=== PATIENT | male | born 1945 | race African-American/Black ===

== ENCOUNTER 2019-01-07 14:37 | Observation (INO) ==
[2019-01-07] MEDS ORDERED: ONDANSETRON 4 MG/2 ML VIAL IV STA (17:02)
[2019-01-07] MEDS ORDERED: MECLIZINE 25 MG TABLET PO STA (17:02)
[2019-01-07 17:11] LABS: Basophils % 0.4 % (0.0-0.8); Eosinophils % 0.2 % (0.00-10.9); Hematocrit 42.9 VOL% (42.0-52.0); Hemoglobin 14.1 GM/DL (14.0-18.0); Immature Granulocytes % 0.5 %; Immature Granulocytes Absolute 0.05 #; Lymphocytes # 2.4 10*3/uL (1.4-4.0); Lymphocytes % 25.6 % (21.2-54.2); Mean Corpuscular HGB Conc 32.9 GM/DL (32-36); Mean Corpuscular Volume 92.1 FL (87-102); Mean Platelet Volume 9.7 FL (9.6-12.0); Monocytes % 8.8 % (1.7-12.7); Neutrophils % 64.5 % (38.7-73.9); Platelet Count 280 T/CUMM (130-400); Red Blood Count 4.66 MC/CUMM (3.8-5.5); Red Cell Distribution Width 12.4 % (9.3-17.3); White Blood Count 9.5 T/CUMM (4-12)
[2019-01-07 17:19] LABS: PT Patient Result 10.4 SECS
[2019-01-07 17:23] LABS: Apearance,Urine Slightly Hazy (Clear); Bilirubin,Urine Negative (Negative); Blood, Urine Negative (Negative); Glucose,Urine (UA) >=500 mg/dL (Negative); Hyaline Casts,Urine 1 /LPF (0-3); Ketones,Urine 5 mg/dL (Negative); Mucus,Urine Occasional /LPF (Occasional); Nitrite,Urine Negative (Negative); Protein,Urine Negative; RBC,Urine 3 /HPF (0-4); Squamous Epithelial Cell,Urine Occasional /HPF (0-10); Urine Color Yellow (Yellow); Urine Urobilinogen < 2.0 EU/DL (0.2-1.0); WBC,Urine 1 /HPF (0-6)
[2019-01-07 17:30] LABS: Barbiturates Screen,Urine Negative (Negative); Benzodiazepines Screen,Urine Negative (Negative); Cannabinoid Screen,Urine Negative (Negative); Opiate Screen,Urine Negative (Negative); Phencyclidine Screen,Urine Negative (Negative)
[2019-01-07 17:41] LABS: Alanine Aminotransferase 24 U/L (16-61); Albumin 3.9 G/DL (3.4-5.0); Alkaline Phosphatase 72 U/L (45-117); Aspartate Amino Transferase 19 U/L (0-37); Blood Urea Nitrogen 12 MG/DL (7-18); Calcium 10.2 MG/DL (8.5-10.1); Glucose 254 MG/DL (74-106); Total Protein 8.4 G/DL (6.4-8.3); Troponin I < 0.015 NG/ML (0.00-0.045)
[2019-01-07] MEDS ORDERED: GLUCAGON 1 MG VIAL IM PRN ×2 (18:53)
[2019-01-07] MEDS ORDERED: DEXTROSE 50% 25 GM/50 ML VIAL IV PRN ×2 (18:53)
[2019-01-07] MEDS: PENTOXIFYLLINE 400 MG TABLET PO SCH (21:01)
[2019-01-07] MEDS: INSULIN LISPRO 100 UNIT/ML SUBCUT SCH (21:02)
[2019-01-08 05:31] LABS: Basophils % 0.4 % (0.0-0.8); Eosinophils # 0.1 10*3/uL (0.0-0.87); Eosinophils % 1.2 % (0.00-10.9); Hemoglobin 12.2 GM/DL (14.0-18.0); Immature Granulocytes % 0.3 %; Immature Granulocytes Absolute 0.03 #; Lymphocytes # 2.6 10*3/uL (1.4-4.0); Lymphocytes % 27.8 % (21.2-54.2); Mean Corpuscular Volume 91.8 FL (87-102); Mean Platelet Volume 10.7 FL (9.6-12.0); Monocytes % 10.6 % (1.7-12.7); Neutrophils % 59.7 % (38.7-73.9); Platelet Count 243 T/CUMM (130-400); Red Blood Count 4.03 MC/CUMM (3.8-5.5); Red Cell Distribution Width 12.4 % (9.3-17.3); White Blood Count 9.5 T/CUMM (4-12)
[2019-01-08 06:00] LABS: Calcium 9.2 MG/DL (8.5-10.1); Osmolality,Calculated 280.8 MOS/KG (273-304); Risk Ratio 2.9; VLDL CHOLESTEROL 31.2 MG/DL
[2019-01-08] MEDS: SIMVASTATIN 10 MG TABLET PO SCH (08:19)
[2019-01-08] MEDS: PENTOXIFYLLINE 400 MG TABLET PO SCH ×3 (08:19→21:19)
[2019-01-08] MEDS: LOSARTAN 50 MG TABLET PO SCH (08:19)
[2019-01-08] MEDS: ASPIRIN EC 81 MG TABLET PO SCH (08:19)
[2019-01-08] MEDS: INSULIN GLARGINE 100 UNIT/ML SUBCUT SCH (08:20)
[2019-01-08] MEDS: INSULIN LISPRO 100 UNIT/ML SUBCUT SCH ×4 (08:20→21:21)
[2019-01-08] MEDS: FOLIC ACID 0.4 MG TABLET PO SCH (16:37)
[2019-01-09 04:55] LABS: Basophils # 0.1 10*3/uL (0.0-0.2); Basophils % 0.7 % (0.0-0.8); Eosinophils # 0.3 10*3/uL (0.0-0.87); Hematocrit 38.8 VOL% (42.0-52.0); Hemoglobin 12.5 GM/DL (14.0-18.0); Immature Granulocytes % 0.5 %; Immature Granulocytes Absolute 0.04 #; Lymphocytes # 3.5 10*3/uL (1.4-4.0); Lymphocytes % 40.3 % (21.2-54.2); Mean Corpuscular HGB Conc 32.2 GM/DL (32-36); Mean Corpuscular Volume 93.5 FL (87-102); Mean Platelet Volume 10.5 FL (9.6-12.0); Monocytes % 10.2 % (1.7-12.7); Neutrophils % 45.3 % (38.7-73.9); Platelet Count 247 T/CUMM (130-400); Red Blood Count 4.15 MC/CUMM (3.8-5.5); Red Cell Distribution Width 12.4 % (9.3-17.3); White Blood Count 8.8 T/CUMM (4-12)
[2019-01-09 05:18] LABS: Calcium 9.4 MG/DL (8.5-10.1); Osmolality,Calculated 282.7 MOS/KG (273-304)
[2019-01-09] MEDS: LOSARTAN 50 MG TABLET PO SCH (08:39)
[2019-01-09] MEDS: ASPIRIN EC 81 MG TABLET PO SCH (08:39)
[2019-01-09] MEDS: INSULIN GLARGINE 100 UNIT/ML SUBCUT SCH (08:39)
[2019-01-09] MEDS: PENTOXIFYLLINE 400 MG TABLET PO SCH ×3 (08:39→20:58)
[2019-01-09] MEDS: INSULIN LISPRO 100 UNIT/ML SUBCUT SCH ×4 (08:40→21:26)
[2019-01-09] MEDS: SIMVASTATIN 10 MG TABLET PO SCH (08:40)
[2019-01-09] MEDS: CLOPIDOGREL 75 MG TABLET PO SCH (17:21)
[2019-01-09] MEDS: FOLIC ACID 0.4 MG TABLET PO SCH (17:22)
[2019-01-10] MEDS: SIMVASTATIN 10 MG TABLET PO SCH (08:46)
[2019-01-10] MEDS: FOLIC ACID 0.4 MG TABLET PO SCH (08:46)
[2019-01-10] MEDS: LOSARTAN 50 MG TABLET PO SCH (08:46)
[2019-01-10] MEDS: CLOPIDOGREL 75 MG TABLET PO SCH (08:46)
[2019-01-10] MEDS: ASPIRIN EC 81 MG TABLET PO SCH (08:46)
[2019-01-10] MEDS: PENTOXIFYLLINE 400 MG TABLET PO SCH (08:46)
[2019-01-10] MEDS: INSULIN LISPRO 100 UNIT/ML SUBCUT SCH ×2 (08:46→11:54)
[2019-01-10] MEDS: INSULIN GLARGINE 100 UNIT/ML SUBCUT SCH (08:47)
[2019-01-10 12:01] VITALS: BP 158/80
== END 2019-01-10 14:30 | disposition home or self-care (01) ==
LOC: SUATTDRO → N.EDINP 14:37 → N.ED 14:37 → N.2E 19:43
PROVIDERS: ADMIT Internal Medicine; ATTEND Internal Medicine

== ENCOUNTER 2020-04-07 08:21 | Inpatient (IN) ==
[2020-04-07 10:08] LABS: Basophils # 0.1 10*3/uL (0.0-0.2); Basophils % 0.5 % (0.0-0.8); Eosinophils # 0.2 10*3/uL (0.0-0.87); Eosinophils % 1.7 % (0.00-10.9); Hematocrit 33.4 VOL% (42.0-52.0); Hemoglobin 10.9 GM/DL (14.0-18.0); Immature Granulocytes % 0.7 %; Immature Granulocytes Absolute 0.07 #; Lymphocytes # 1.3 10*3/uL (1.4-4.0); Mean Corpuscular HGB Conc 32.6 GM/DL (32-36); Mean Corpuscular Volume 94.4 FL (87-102); Mean Platelet Volume 10.5 FL (9.6-12.0); Neutrophils % 72.1 % (38.7-73.9); Platelet Count 114 T/CUMM (130-400); Red Blood Count 3.54 MC/CUMM (3.8-5.5); White Blood Count 9.9 T/CUMM (4-12)
[2020-04-07 10:25] LABS: Apearance,Urine CLEAR (Clear); Bilirubin,Urine Negative (Negative); Blood, Urine Small mg/dL (Negative); Glucose,Urine (UA) >=500 mg/dL (Negative); Hyaline Casts,Urine 1 /LPF (0-3); Ketones,Urine Negative (Negative); Mucus,Urine Occasional /LPF (Occasional); Nitrite,Urine Negative (Negative); Protein,Urine 30 MG/DL; RBC,Urine 2 /HPF (0-4); Squamous Epithelial Cell,Urine Occasional /HPF (0-10); Urine Color Yellow (Yellow); Urine Specific Gravity 1.014 (1.001-1.035); Urine Urobilinogen < 2.0 EU/DL (0.2-1.0); WBC,Urine 2 /HPF (0-6)
[2020-04-07 10:28] LABS: Albumin 3.6 G/DL (3.4-5.0); Bilirubin,Total 0.5 MG/DL (0.2-1.0); Calcium 9.9 MG/DL (8.5-10.1); Osmolality,Calculated 298.1 MOS/KG (273-304); Total Protein 7.3 G/DL (6.4-8.3)
[2020-04-07] MEDS ORDERED: ONDANSETRON 4 MG/2 ML VIAL IV PRN (11:24)
[2020-04-07] MEDS ORDERED: GLUCAGON 1 MG VIAL IM PRN (15:13)
[2020-04-07] MEDS ORDERED: DEXTROSE 50% 25 GM/50 ML VIAL IV PRN (15:13)
[2020-04-07] MEDS: ENOXAPARIN 30 MG/0.3 ML SYRINGE SUBCUT SCH (20:20)
[2020-04-07] MEDS: PREGABALIN 50 MG CAPSULE PO SCH (20:20)
[2020-04-07] MEDS: DOCUSATE SODIUM 100 MG CAPSULE PO SCH (20:20)
[2020-04-07] MEDS: INSULIN GLARGINE 100 UNIT/ML SUBCUT SCH (20:21)
[2020-04-08] MEDS ORDERED: LOSARTAN 50 MG TABLET PO SCH (09:00)
[2020-04-08] MEDS: PANTOPRAZOLE 40 MG TABLET PO SCH (09:10)
[2020-04-08] MEDS: FOLIC ACID 0.4 MG TABLET PO SCH (09:10)
[2020-04-08] MEDS: SIMVASTATIN 10 MG TABLET PO SCH (09:10)
[2020-04-08] MEDS: PREGABALIN 50 MG CAPSULE PO SCH (09:10)
[2020-04-08] MEDS: DOCUSATE SODIUM 100 MG CAPSULE PO SCH ×2 (09:10→21:51)
[2020-04-08] MEDS: ASPIRIN EC 81 MG TABLET PO SCH (09:10)
[2020-04-08] MEDS: INSULIN REGULAR 100 UNIT/ML SUBCUT SCH ×2 (16:51→21:52)
[2020-04-08 19:37] LABS: Creatinine Clearance Urine 29.28 ML/MIN (70-135)
[2020-04-08] MEDS: PREGABALIN 75 MG CAPSULE PO SCH (21:51)
[2020-04-08] MEDS: INSULIN GLARGINE 100 UNIT/ML SUBCUT SCH (21:53)
[2020-04-08] MEDS: ENOXAPARIN 30 MG/0.3 ML SYRINGE SUBCUT SCH (21:53)
[2020-04-09] MEDS: SODIUM CHLORIDE 0.9% 1,000 ML IV SCH ×3 (01:49→21:51)
[2020-04-09 06:13] LABS: Calcium 9.4 MG/DL (8.5-10.1); Osmolality,Calculated 285.4 MOS/KG (273-304)
[2020-04-09 06:23] LABS: Uric Acid 5.8 MG/DL (3.5-7.2)
[2020-04-09] MEDS: SIMVASTATIN 10 MG TABLET PO SCH (09:34)
[2020-04-09] MEDS: traMADol 50 MG TABLET PO SCH ×4 (09:34→21:47)
[2020-04-09] MEDS: ASPIRIN EC 81 MG TABLET PO SCH (09:34)
[2020-04-09] MEDS: GLIMEPIRIDE 2 MG TABLET PO SCH (09:34)
[2020-04-09] MEDS: amLODIPine 5 MG TABLET PO SCH (09:34)
[2020-04-09] MEDS: FOLIC ACID 0.4 MG TABLET PO SCH (09:34)
[2020-04-09] MEDS: DOCUSATE SODIUM 100 MG CAPSULE PO SCH ×2 (09:34→21:48)
[2020-04-09] MEDS: PANTOPRAZOLE 40 MG TABLET PO SCH (09:34)
[2020-04-09] MEDS: INSULIN REGULAR 100 UNIT/ML SUBCUT SCH ×4 (10:00→21:49)
[2020-04-09] MEDS: LIDOCAINE 5% PATCH TRANSDERM SCH (10:13)
[2020-04-09] MEDS: PREGABALIN 75 MG CAPSULE PO SCH ×3 (10:24→21:47)
[2020-04-09] MEDS: cefTRIAXone 500 MG in SYRINGE 1 EACH IV SCH (16:56)
[2020-04-09] MEDS: ENOXAPARIN 30 MG/0.3 ML SYRINGE SUBCUT SCH (21:48)
[2020-04-09] MEDS: INSULIN GLARGINE 100 UNIT/ML SUBCUT SCH (21:50)
[2020-04-10 05:11] LABS: Basophils # 0.1 10*3/uL (0.0-0.2); Basophils % 0.6 % (0.0-0.8); Eosinophils # 0.2 10*3/uL (0.0-0.87); Eosinophils % 2.5 % (0.00-10.9); Hematocrit 33.8 VOL% (42.0-52.0); Hemoglobin 10.8 GM/DL (14.0-18.0); Immature Granulocytes % 0.8 %; Immature Granulocytes Absolute 0.07 #; Lymphocytes # 2.4 10*3/uL (1.4-4.0); Mean Corpuscular Volume 96.6 FL (87-102); Mean Platelet Volume 10.6 FL (9.6-12.0); Monocytes % 13.5 % (1.7-12.7); Neutrophils % 55.6 % (38.7-73.9); Platelet Count 118 T/CUMM (130-400); White Blood Count 8.9 T/CUMM (4-12)
[2020-04-10 05:28] LABS: Albumin 3.3 G/DL (3.4-5.0); Bilirubin,Total 0.4 MG/DL (0.2-1.0); Calcium 9.5 MG/DL (8.5-10.1); Hypochromasia 1+; Osmolality,Calculated 283.1 MOS/KG (273-304); Ovalocytes Slight; Total Protein 7.2 G/DL (6.4-8.3)
[2020-04-10] MEDS: SODIUM CHLORIDE 0.9% 1,000 ML IV SCH ×2 (09:12→17:51)
[2020-04-10] MEDS: INSULIN REGULAR 100 UNIT/ML SUBCUT SCH ×4 (09:15→23:04)
[2020-04-10] MEDS: ASPIRIN EC 81 MG TABLET PO SCH (09:16)
[2020-04-10] MEDS: FOLIC ACID 0.4 MG TABLET PO SCH (09:16)
[2020-04-10] MEDS: SIMVASTATIN 10 MG TABLET PO SCH (09:16)
[2020-04-10] MEDS: DOCUSATE SODIUM 100 MG CAPSULE PO SCH ×2 (09:16→21:34)
[2020-04-10] MEDS: PANTOPRAZOLE 40 MG TABLET PO SCH (09:16)
[2020-04-10] MEDS: PREGABALIN 75 MG CAPSULE PO SCH ×3 (09:16→21:34)
[2020-04-10] MEDS: cefTRIAXone 500 MG in SYRINGE 1 EACH IV SCH (09:16)
[2020-04-10] MEDS: amLODIPine 5 MG TABLET PO SCH (09:16)
[2020-04-10] MEDS: traMADol 50 MG TABLET PO SCH ×4 (09:16→21:34)
[2020-04-10] MEDS: GLIMEPIRIDE 2 MG TABLET PO SCH (09:16)
[2020-04-10] MEDS: LIDOCAINE 5% PATCH TRANSDERM SCH (09:17)
[2020-04-10] MEDS: ENOXAPARIN 30 MG/0.3 ML SYRINGE SUBCUT SCH (21:34)
[2020-04-10] MEDS: INSULIN GLARGINE 100 UNIT/ML SUBCUT SCH (23:04)
[2020-04-11] MEDS: SODIUM CHLORIDE 0.9% 1,000 ML IV SCH ×3 (04:21→23:45)
[2020-04-11 05:05] LABS: Basophils # 0.1 10*3/uL (0.0-0.2); Basophils % 0.7 % (0.0-0.8); Eosinophils # 0.3 10*3/uL (0.0-0.87); Hematocrit 34.2 VOL% (42.0-52.0); Immature Granulocytes % 0.9 %; Immature Granulocytes Absolute 0.08 #; Lymphocytes # 1.8 10*3/uL (1.4-4.0); Lymphocytes % 19.8 % (21.2-54.2); Mean Corpuscular HGB Conc 32.2 GM/DL (32-36); Mean Corpuscular Volume 94.5 FL (87-102); Mean Platelet Volume 10.8 FL (9.6-12.0); Monocytes % 11.3 % (1.7-12.7); Neutrophils % 64.3 % (38.7-73.9); Platelet Count 111 T/CUMM (130-400); Red Blood Count 3.62 MC/CUMM (3.8-5.5); Red Cell Distribution Width 12.9 % (9.3-17.3); White Blood Count 9.2 T/CUMM (4-12)
[2020-04-11 05:26] LABS: Hypochromasia 1+; Ovalocytes Slight
[2020-04-11 05:34] LABS: Albumin 3.4 G/DL (3.4-5.0); Bilirubin,Total 0.5 MG/DL (0.2-1.0); Calcium 9.5 MG/DL (8.5-10.1); Osmolality,Calculated 278.4 MOS/KG (273-304); Total Protein 7.3 G/DL (6.4-8.3)
[2020-04-11] MEDS ORDERED: SODIUM POLYSTYRENE SULFATE 15 GM/60 ML BOTTLE PO ONE (07:00)
[2020-04-11] MEDS: INSULIN REGULAR 100 UNIT/ML SUBCUT SCH ×4 (09:22→20:54)
[2020-04-11] MEDS: GLIMEPIRIDE 2 MG TABLET PO SCH (09:22)
[2020-04-11] MEDS: amLODIPine 5 MG TABLET PO SCH (09:23)
[2020-04-11] MEDS: FOLIC ACID 0.4 MG TABLET PO SCH (09:23)
[2020-04-11] MEDS: DOCUSATE SODIUM 100 MG CAPSULE PO SCH ×2 (09:23→20:53)
[2020-04-11] MEDS: PREGABALIN 75 MG CAPSULE PO SCH ×3 (09:23→20:53)
[2020-04-11] MEDS: PANTOPRAZOLE 40 MG TABLET PO SCH (09:23)
[2020-04-11] MEDS: ASPIRIN EC 81 MG TABLET PO SCH (09:23)
[2020-04-11] MEDS: LIDOCAINE 5% PATCH TRANSDERM SCH (09:23)
[2020-04-11] MEDS: SIMVASTATIN 10 MG TABLET PO SCH (09:24)
[2020-04-11] MEDS: traMADol 50 MG TABLET PO SCH ×4 (09:24→20:53)
[2020-04-11] MEDS: cefTRIAXone 500 MG in SYRINGE 1 EACH IV SCH (10:27)
[2020-04-11] MEDS ORDERED: SODIUM POLYSTYRENE SULFATE 15 GM/60 ML BOTTLE PO STA (16:01)
[2020-04-11] MEDS ORDERED: SODIUM POLYSTYRENE SULFATE 15 GM/60 ML BOTTLE PO PRN (19:00)
[2020-04-11] MEDS: INSULIN GLARGINE 100 UNIT/ML SUBCUT SCH (20:54)
[2020-04-11] MEDS: ENOXAPARIN 30 MG/0.3 ML SYRINGE SUBCUT SCH (20:54)
[2020-04-12 06:10] LABS: Calcium 9.2 MG/DL (8.5-10.1); Osmolality,Calculated 274.8 MOS/KG (273-304)
[2020-04-12] MEDS: PANTOPRAZOLE 40 MG TABLET PO SCH (10:01)
[2020-04-12] MEDS: traMADol 50 MG TABLET PO SCH ×4 (10:02→20:55)
[2020-04-12] MEDS: amLODIPine 5 MG TABLET PO SCH (10:03)
[2020-04-12] MEDS: SIMVASTATIN 10 MG TABLET PO SCH (10:03)
[2020-04-12] MEDS: ASPIRIN EC 81 MG TABLET PO SCH (10:03)
[2020-04-12] MEDS: PREGABALIN 75 MG CAPSULE PO SCH ×3 (10:03→20:54)
[2020-04-12] MEDS: DOCUSATE SODIUM 100 MG CAPSULE PO SCH ×2 (10:03→20:54)
[2020-04-12] MEDS: INSULIN REGULAR 100 UNIT/ML SUBCUT SCH ×4 (10:04→20:46)
[2020-04-12] MEDS: GLIMEPIRIDE 2 MG TABLET PO SCH (10:04)
[2020-04-12] MEDS: FOLIC ACID 0.4 MG TABLET PO SCH (10:05)
[2020-04-12] MEDS: LIDOCAINE 5% PATCH TRANSDERM SCH (10:06)
[2020-04-12] MEDS: cefTRIAXone 500 MG in SYRINGE 1 EACH IV SCH (10:17)
[2020-04-12] MEDS: INSULIN GLARGINE 100 UNIT/ML SUBCUT SCH (20:54)
[2020-04-12] MEDS: ENOXAPARIN 30 MG/0.3 ML SYRINGE SUBCUT SCH (20:55)
[2020-04-13 06:10] LABS: Basophils # 0.1 10*3/uL (0.0-0.2); Basophils % 0.7 % (0.0-0.8); Eosinophils # 0.3 10*3/uL (0.0-0.87); Eosinophils % 3.5 % (0.00-10.9); Hematocrit 31.2 VOL% (42.0-52.0); Immature Granulocytes % 1.1 %; Lymphocytes % 21.5 % (21.2-54.2); Mean Corpuscular HGB Conc 32.1 GM/DL (32-36); Mean Platelet Volume 10.4 FL (9.6-12.0); Monocytes % 13.3 % (1.7-12.7); Neutrophils % 59.9 % (38.7-73.9); Platelet Count 136 T/CUMM (130-400); Red Blood Count 3.25 MC/CUMM (3.8-5.5); Red Cell Distribution Width 13.1 % (9.3-17.3); White Blood Count 9.2 T/CUMM (4-12)
[2020-04-13 06:28] LABS: Albumin 3.2 G/DL (3.4-5.0); Calcium 9.7 MG/DL (8.5-10.1); Total Protein 7.1 G/DL (6.4-8.3)
[2020-04-13] MEDS: LIDOCAINE 5% PATCH TRANSDERM SCH (09:38)
[2020-04-13] MEDS: cefTRIAXone 500 MG in SYRINGE 1 EACH IV SCH (09:38)
[2020-04-13] MEDS: amLODIPine 5 MG TABLET PO SCH (09:40)
[2020-04-13] MEDS: DOCUSATE SODIUM 100 MG CAPSULE PO SCH ×2 (09:40→20:24)
[2020-04-13] MEDS: INSULIN REGULAR 100 UNIT/ML SUBCUT SCH ×4 (09:40→20:34)
[2020-04-13] MEDS: GLIMEPIRIDE 2 MG TABLET PO SCH (09:40)
[2020-04-13] MEDS: PREGABALIN 75 MG CAPSULE PO SCH ×3 (09:40→20:24)
[2020-04-13] MEDS: FOLIC ACID 0.4 MG TABLET PO SCH (09:40)
[2020-04-13] MEDS: traMADol 50 MG TABLET PO SCH ×2 (09:41→13:20)
[2020-04-13] MEDS: SIMVASTATIN 10 MG TABLET PO SCH (09:41)
[2020-04-13] MEDS: PANTOPRAZOLE 40 MG TABLET PO SCH (09:41)
[2020-04-13] MEDS ORDERED: FUROSEMIDE 40 MG TABLET PO ONE (13:07)
[2020-04-13] MEDS ORDERED: traMADol 50 MG TABLET PO PRN (13:17)
[2020-04-13] MEDS: INSULIN GLARGINE 100 UNIT/ML SUBCUT SCH (20:28)
[2020-04-14] MEDS: INSULIN REGULAR 100 UNIT/ML SUBCUT SCH ×3 (08:48→21:49)
[2020-04-14] MEDS ORDERED: methylPREDNISolone ACETATE 80 MG/1 ML VIAL ONE (11:39)
[2020-04-14] MEDS ORDERED: ROPIVACAINE 0.5% 30 ML VIAL ONE (11:39)
[2020-04-14] MEDS: cefTRIAXone 500 MG in SYRINGE 1 EACH IV SCH (11:46)
[2020-04-14] MEDS ORDERED: LIDOCAINE 2% 5 ML VIAL ONE (12:48)
[2020-04-14] MEDS ORDERED: ONDANSETRON 4 MG/2 ML VIAL ONE (12:48)
[2020-04-14] MEDS ORDERED: DEXAMETHASONE 4 MG/1 ML VIAL ONE (12:48)
[2020-04-14] MEDS ORDERED: propofoL 200 MG/20 ML VIAL IV ONE (12:48)
[2020-04-14] MEDS ORDERED: FUROSEMIDE 40 MG/4 ML VIAL IV ONE (13:32)
[2020-04-14] MEDS ORDERED: GLUCAGON 1 MG VIAL IM PRN (14:13)
[2020-04-14] MEDS ORDERED: DEXTROSE 50% 25 GM/50 ML VIAL IV PRN (14:13)
[2020-04-14] MEDS: FOLIC ACID 0.4 MG TABLET PO SCH (15:05)
[2020-04-14] MEDS: PANTOPRAZOLE 40 MG TABLET PO SCH (15:06)
[2020-04-14] MEDS: SIMVASTATIN 10 MG TABLET PO SCH (15:06)
[2020-04-14] MEDS: DOCUSATE SODIUM 100 MG CAPSULE PO SCH ×2 (15:07→21:48)
[2020-04-14] MEDS: PREGABALIN 50 MG CAPSULE PO SCH ×2 (15:07→21:48)
[2020-04-14] MEDS: LIDOCAINE 5% PATCH TRANSDERM SCH (15:10)
[2020-04-14] MEDS: hydrALAZINE 25 MG TABLET PO SCH ×2 (15:10→21:48)
[2020-04-14] MEDS: GLIMEPIRIDE 2 MG TABLET PO SCH (16:25)
[2020-04-14] MEDS ORDERED: CLOPIDOGREL 75 MG TABLET PO ONE (17:35)
[2020-04-14] MEDS: PREGABALIN 75 MG CAPSULE PO SCH (20:06)
[2020-04-14] MEDS: INSULIN GLARGINE 100 UNIT/ML SUBCUT SCH (21:49)
[2020-04-15 06:18] LABS: Calcium 9.4 MG/DL (8.5-10.1); Osmolality,Calculated 281.4 MOS/KG (273-304)
[2020-04-15] MEDS: INSULIN REGULAR 100 UNIT/ML SUBCUT SCH ×5 (07:34→20:36)
[2020-04-15] MEDS: amLODIPine 5 MG TABLET PO SCH (07:38)
[2020-04-15] MEDS: GLIMEPIRIDE 2 MG TABLET PO SCH ×2 (08:25→17:04)
[2020-04-15] MEDS: FOLIC ACID 0.4 MG TABLET PO SCH (12:10)
[2020-04-15] MEDS: SIMVASTATIN 10 MG TABLET PO SCH (12:11)
[2020-04-15] MEDS: CLOPIDOGREL 75 MG TABLET PO SCH (12:11)
[2020-04-15] MEDS: PANTOPRAZOLE 40 MG TABLET PO SCH (12:11)
[2020-04-15] MEDS: DOCUSATE SODIUM 100 MG CAPSULE PO SCH ×2 (12:11→20:34)
[2020-04-15] MEDS: hydrALAZINE 25 MG TABLET PO SCH ×2 (12:12→20:34)
[2020-04-15] MEDS: FUROSEMIDE 40 MG/4 ML VIAL IV SCH (12:21)
[2020-04-15] MEDS: PREGABALIN 50 MG CAPSULE PO SCH ×2 (12:22→20:34)
[2020-04-15] MEDS: cefTRIAXone 500 MG in SYRINGE 1 EACH IV SCH (14:02)
[2020-04-15] MEDS: LIDOCAINE 5% PATCH TRANSDERM SCH (20:05)
[2020-04-15] MEDS: INSULIN GLARGINE 100 UNIT/ML SUBCUT SCH (20:35)
[2020-04-16 05:45] LABS: Basophils # 0.1 10*3/uL (0.0-0.2); Basophils % 0.5 % (0.0-0.8); Eosinophils # 0.2 10*3/uL (0.0-0.87); Eosinophils % 1.5 % (0.00-10.9); Hemoglobin 8.8 GM/DL (14.0-18.0); Immature Granulocytes % 0.8 %; Immature Granulocytes Absolute 0.09 #; Lymphocytes # 1.5 10*3/uL (1.4-4.0); Lymphocytes % 14.1 % (21.2-54.2); Mean Corpuscular HGB Conc 32.6 GM/DL (32-36); Mean Corpuscular Volume 94.4 FL (87-102); Mean Platelet Volume 10.5 FL (9.6-12.0); Monocytes % 13.8 % (1.7-12.7); Neutrophils % 69.3 % (38.7-73.9); Platelet Count 156 T/CUMM (130-400); Red Blood Count 2.86 MC/CUMM (3.8-5.5); White Blood Count 10.9 T/CUMM (4-12)
[2020-04-16 06:03] LABS: Albumin 3.2 G/DL (3.4-5.0); Bilirubin,Total 0.4 MG/DL (0.2-1.0); Calcium 9.4 MG/DL (8.5-10.1); Total Protein 7.1 G/DL (6.4-8.3)
[2020-04-16] MEDS: PANTOPRAZOLE 40 MG TABLET PO SCH (09:11)
[2020-04-16] MEDS: GLIMEPIRIDE 2 MG TABLET PO SCH ×2 (09:11→17:13)
[2020-04-16] MEDS: hydrALAZINE 25 MG TABLET PO SCH ×2 (09:12→20:39)
[2020-04-16] MEDS: FOLIC ACID 0.4 MG TABLET PO SCH (09:12)
[2020-04-16] MEDS: DOCUSATE SODIUM 100 MG CAPSULE PO SCH ×2 (09:13→20:39)
[2020-04-16] MEDS: SIMVASTATIN 10 MG TABLET PO SCH (09:13)
[2020-04-16] MEDS: CLOPIDOGREL 75 MG TABLET PO SCH (09:14)
[2020-04-16] MEDS: PREGABALIN 50 MG CAPSULE PO SCH ×2 (09:15→20:39)
[2020-04-16] MEDS: LIDOCAINE 5% PATCH TRANSDERM SCH (09:17)
[2020-04-16] MEDS: INSULIN REGULAR 100 UNIT/ML SUBCUT SCH ×4 (09:19→20:39)
[2020-04-16] MEDS: FUROSEMIDE 40 MG/4 ML VIAL IV SCH (09:22)
[2020-04-16] MEDS: cefTRIAXone 500 MG in SYRINGE 1 EACH IV SCH (09:27)
[2020-04-16] MEDS: INSULIN GLARGINE 100 UNIT/ML SUBCUT SCH (20:40)
[2020-04-17 04:19] LABS: Basophils # 0.1 10*3/uL (0.0-0.2); Basophils % 0.4 % (0.0-0.8); Eosinophils # 0.2 10*3/uL (0.0-0.87); Eosinophils % 1.6 % (0.00-10.9); Hematocrit 27.9 VOL% (42.0-52.0); Immature Granulocytes Absolute 0.11 #; Lymphocytes # 1.6 10*3/uL (1.4-4.0); Lymphocytes % 13.8 % (21.2-54.2); Mean Corpuscular HGB Conc 32.3 GM/DL (32-36); Mean Corpuscular Volume 92.7 FL (87-102); Monocytes % 14.8 % (1.7-12.7); Neutrophils % 68.4 % (38.7-73.9); Platelet Count 153 T/CUMM (130-400); Red Blood Count 3.01 MC/CUMM (3.8-5.5); White Blood Count 11.2 T/CUMM (4-12)
[2020-04-17 04:38] LABS: Albumin 3.3 G/DL (3.4-5.0); Bilirubin,Total 0.7 MG/DL (0.2-1.0); Calcium 9.3 MG/DL (8.5-10.1); Total Protein 7.3 G/DL (6.4-8.3)
[2020-04-17] MEDS: INSULIN REGULAR 100 UNIT/ML SUBCUT SCH ×4 (07:56→21:19)
[2020-04-17] MEDS: LIDOCAINE 5% PATCH TRANSDERM SCH (08:31)
[2020-04-17] MEDS: FUROSEMIDE 40 MG/4 ML VIAL IV SCH (08:34)
[2020-04-17] MEDS: PANTOPRAZOLE 40 MG TABLET PO SCH (08:35)
[2020-04-17] MEDS: SIMVASTATIN 10 MG TABLET PO SCH (08:35)
[2020-04-17] MEDS: CLOPIDOGREL 75 MG TABLET PO SCH (08:35)
[2020-04-17] MEDS: PREGABALIN 50 MG CAPSULE PO SCH ×2 (08:35→21:15)
[2020-04-17] MEDS: hydrALAZINE 25 MG TABLET PO SCH ×2 (08:35→21:15)
[2020-04-17] MEDS: DOCUSATE SODIUM 100 MG CAPSULE PO SCH ×2 (08:35→21:15)
[2020-04-17] MEDS: FERROUS SULFATE 325 MG TABLET PO SCH (08:35)
[2020-04-17] MEDS: GLIMEPIRIDE 2 MG TABLET PO SCH ×2 (08:35→16:25)
[2020-04-17] MEDS: FOLIC ACID 0.4 MG TABLET PO SCH (08:35)
[2020-04-17] MEDS ORDERED: FUROSEMIDE 40 MG/4 ML VIAL IV ONE (14:35)
[2020-04-17] MEDS: INSULIN GLARGINE 100 UNIT/ML SUBCUT SCH (21:16)
[2020-04-18] MEDS: FUROSEMIDE 40 MG/4 ML VIAL IV SCH ×2 (08:11→17:17)
[2020-04-18] MEDS: INSULIN REGULAR 100 UNIT/ML SUBCUT SCH ×4 (08:12→20:30)
[2020-04-18] MEDS: FERROUS SULFATE 325 MG TABLET PO SCH (08:14)
[2020-04-18] MEDS: DOCUSATE SODIUM 100 MG CAPSULE PO SCH ×2 (08:14→20:30)
[2020-04-18] MEDS: FOLIC ACID 0.4 MG TABLET PO SCH (08:14)
[2020-04-18] MEDS: hydrALAZINE 25 MG TABLET PO SCH ×2 (08:14→20:30)
[2020-04-18] MEDS: SIMVASTATIN 10 MG TABLET PO SCH (08:14)
[2020-04-18] MEDS: CLOPIDOGREL 75 MG TABLET PO SCH (08:14)
[2020-04-18] MEDS: PANTOPRAZOLE 40 MG TABLET PO SCH (08:14)
[2020-04-18] MEDS: GLIMEPIRIDE 2 MG TABLET PO SCH ×2 (08:14→17:17)
[2020-04-18] MEDS: PREGABALIN 50 MG CAPSULE PO SCH ×2 (08:14→20:30)
[2020-04-18] MEDS: LIDOCAINE 5% PATCH TRANSDERM SCH (08:17)
[2020-04-18] MEDS: APIXABAN 2.5 MG TABLET PO SCH ×2 (09:24→20:30)
[2020-04-18] MEDS: INSULIN GLARGINE 100 UNIT/ML SUBCUT SCH (20:30)
[2020-04-19 06:08] LABS: Basophils # 0.1 10*3/uL (0.0-0.2); Basophils % 0.4 % (0.0-0.8); Eosinophils # 0.2 10*3/uL (0.0-0.87); Eosinophils % 1.2 % (0.00-10.9); Hematocrit 27.9 VOL% (42.0-52.0); Hemoglobin 9.1 GM/DL (14.0-18.0); Immature Granulocytes % 0.8 %; Immature Granulocytes Absolute 0.12 #; Lymphocytes # 1.4 10*3/uL (1.4-4.0); Lymphocytes % 9.6 % (21.2-54.2); Mean Corpuscular HGB Conc 32.6 GM/DL (32-36); Mean Corpuscular Volume 94.3 FL (87-102); Mean Platelet Volume 9.7 FL (9.6-12.0); Platelet Count 187 T/CUMM (130-400); Red Blood Count 2.96 MC/CUMM (3.8-5.5); Red Cell Distribution Width 12.9 % (9.3-17.3); White Blood Count 14.2 T/CUMM (4-12)
[2020-04-19 06:41] LABS: Calcium 9.4 MG/DL (8.5-10.1); Osmolality,Calculated 277.7 MOS/KG (273-304)
[2020-04-19] MEDS: FUROSEMIDE 40 MG/4 ML VIAL IV SCH ×2 (08:28→16:13)
[2020-04-19] MEDS: DOCUSATE SODIUM 100 MG CAPSULE PO SCH ×2 (08:28→21:50)
[2020-04-19] MEDS: APIXABAN 2.5 MG TABLET PO SCH ×2 (08:28→21:50)
[2020-04-19] MEDS: CLOPIDOGREL 75 MG TABLET PO SCH (08:28)
[2020-04-19] MEDS: FOLIC ACID 0.4 MG TABLET PO SCH (08:28)
[2020-04-19] MEDS: PANTOPRAZOLE 40 MG TABLET PO SCH (08:28)
[2020-04-19] MEDS: FERROUS SULFATE 325 MG TABLET PO SCH (08:28)
[2020-04-19] MEDS: PREGABALIN 50 MG CAPSULE PO SCH ×2 (08:28→21:50)
[2020-04-19] MEDS: hydrALAZINE 25 MG TABLET PO SCH ×2 (08:28→21:50)
[2020-04-19] MEDS: SIMVASTATIN 10 MG TABLET PO SCH (08:28)
[2020-04-19] MEDS: GLIMEPIRIDE 2 MG TABLET PO SCH ×2 (08:28→16:13)
[2020-04-19] MEDS: LIDOCAINE 5% PATCH TRANSDERM SCH (08:29)
[2020-04-19] MEDS: INSULIN REGULAR 100 UNIT/ML SUBCUT SCH ×4 (08:30→21:50)
[2020-04-19] MEDS: INSULIN GLARGINE 100 UNIT/ML SUBCUT SCH (21:51)
[2020-04-20 05:01] LABS: Basophils # 0.1 10*3/uL (0.0-0.2); Basophils % 0.4 % (0.0-0.8); Eosinophils # 0.1 10*3/uL (0.0-0.87); Eosinophils % 0.8 % (0.00-10.9); Hematocrit 27.6 VOL% (42.0-52.0); Immature Granulocytes % 0.7 %; Lymphocytes # 2.1 10*3/uL (1.4-4.0); Lymphocytes % 14.1 % (21.2-54.2); Mean Corpuscular HGB Conc 32.6 GM/DL (32-36); Mean Corpuscular Volume 93.6 FL (87-102); Mean Platelet Volume 9.9 FL (9.6-12.0); Monocytes % 14.8 % (1.7-12.7); Neutrophils % 69.2 % (38.7-73.9); Platelet Count 226 T/CUMM (130-400); Red Blood Count 2.95 MC/CUMM (3.8-5.5); Red Cell Distribution Width 12.8 % (9.3-17.3)
[2020-04-20 05:19] LABS: Calcium 9.4 MG/DL (8.5-10.1); Osmolality,Calculated 275.7 MOS/KG (273-304)
[2020-04-20] MEDS: FUROSEMIDE 40 MG/4 ML VIAL IV SCH ×2 (08:46→17:25)
[2020-04-20] MEDS: INSULIN REGULAR 100 UNIT/ML SUBCUT SCH ×4 (08:46→21:02)
[2020-04-20] MEDS: APIXABAN 2.5 MG TABLET PO SCH ×2 (08:47→21:02)
[2020-04-20] MEDS: GLIMEPIRIDE 2 MG TABLET PO SCH ×2 (08:47→17:29)
[2020-04-20] MEDS: hydrALAZINE 25 MG TABLET PO SCH ×2 (08:47→21:02)
[2020-04-20] MEDS: FOLIC ACID 0.4 MG TABLET PO SCH (08:47)
[2020-04-20] MEDS: DOCUSATE SODIUM 100 MG CAPSULE PO SCH ×2 (08:47→21:02)
[2020-04-20] MEDS: PREGABALIN 50 MG CAPSULE PO SCH ×2 (08:48→21:02)
[2020-04-20] MEDS: SIMVASTATIN 10 MG TABLET PO SCH (08:48)
[2020-04-20] MEDS: FERROUS SULFATE 325 MG TABLET PO SCH (08:48)
[2020-04-20] MEDS: PANTOPRAZOLE 40 MG TABLET PO SCH (08:48)
[2020-04-20] MEDS: CLOPIDOGREL 75 MG TABLET PO SCH (08:48)
[2020-04-20] MEDS: LIDOCAINE 5% PATCH TRANSDERM SCH (08:53)
[2020-04-20] MEDS: INSULIN GLARGINE 100 UNIT/ML SUBCUT SCH (21:02)
[2020-04-21] MEDS: INSULIN REGULAR 100 UNIT/ML SUBCUT SCH ×4 (08:00→21:18)
[2020-04-21] MEDS: GLIMEPIRIDE 2 MG TABLET PO SCH ×2 (08:43→16:05)
[2020-04-21] MEDS: FUROSEMIDE 40 MG/4 ML VIAL IV SCH ×2 (08:43→16:05)
[2020-04-21] MEDS: PREGABALIN 50 MG CAPSULE PO SCH ×2 (08:55→20:58)
[2020-04-21] MEDS: FOLIC ACID 0.4 MG TABLET PO SCH (08:57)
[2020-04-21] MEDS: FERROUS SULFATE 325 MG TABLET PO SCH (08:57)
[2020-04-21] MEDS: CLOPIDOGREL 75 MG TABLET PO SCH (08:57)
[2020-04-21] MEDS: APIXABAN 2.5 MG TABLET PO SCH ×2 (08:57→20:58)
[2020-04-21] MEDS: SIMVASTATIN 10 MG TABLET PO SCH (08:57)
[2020-04-21] MEDS: PANTOPRAZOLE 40 MG TABLET PO SCH (08:57)
[2020-04-21] MEDS: LIDOCAINE 5% PATCH TRANSDERM SCH (08:58)
[2020-04-21] MEDS: DOCUSATE SODIUM 100 MG CAPSULE PO SCH ×2 (08:58→20:57)
[2020-04-21] MEDS: hydrALAZINE 25 MG TABLET PO SCH ×2 (09:15→20:59)
[2020-04-21 13:18] LABS: Calcium 9.3 MG/DL (8.5-10.1); Osmolality,Calculated 279.8 MOS/KG (273-304)
[2020-04-21] MEDS ORDERED: traMADol 50 MG TABLET PO PRN (14:43)
[2020-04-21] MEDS ORDERED: TUBERCULIN SKIN TEST 0.1 ML SYRINGE INTRADERM ONE (15:42)
[2020-04-21] MEDS: cefTRIAXone 500 MG in SYRINGE 1 EACH IV SCH (16:49)
[2020-04-21] MEDS: ACETAMINOPHEN 325 MG TABLET PO PRN (20:05)
[2020-04-21] MEDS: INSULIN GLARGINE 100 UNIT/ML SUBCUT SCH (20:57)
[2020-04-22 05:14] LABS: Basophils # 0.1 10*3/uL (0.0-0.2); Basophils % 0.3 % (0.0-0.8); Eosinophils % 0.3 % (0.00-10.9); Hematocrit 30.4 VOL% (42.0-52.0); Hemoglobin 9.6 GM/DL (14.0-18.0); Immature Granulocytes % 0.8 %; Immature Granulocytes Absolute 0.12 #; Lymphocytes # 1.5 10*3/uL (1.4-4.0); Lymphocytes % 10.4 % (21.2-54.2); Mean Corpuscular HGB Conc 31.6 GM/DL (32-36); Mean Corpuscular Volume 94.7 FL (87-102); Mean Platelet Volume 9.8 FL (9.6-12.0); Monocytes % 17.4 % (1.7-12.7); Neutrophils % 70.8 % (38.7-73.9); Platelet Count 340 T/CUMM (130-400); Red Blood Count 3.21 MC/CUMM (3.8-5.5); Red Cell Distribution Width 12.6 % (9.3-17.3); White Blood Count 14.3 T/CUMM (4-12)
[2020-04-22 05:31] LABS: Calcium 9.9 MG/DL (8.5-10.1); Osmolality,Calculated 275.8 MOS/KG (273-304)
[2020-04-22 05:49] LABS: Hypochromasia 1+; Lymphocytes 8 % (20-55); Microcytosis 1+; Ovalocytes Slight; Platelet Estimate Adequate; Segmented Neutrophils 78 % (50-85); Total Cells Counted 100
[2020-04-22] MEDS: FOLIC ACID 0.4 MG TABLET PO SCH (09:10)
[2020-04-22] MEDS: FERROUS SULFATE 325 MG TABLET PO SCH (09:10)
[2020-04-22] MEDS: APIXABAN 2.5 MG TABLET PO SCH ×2 (09:10→21:04)
[2020-04-22] MEDS: SIMVASTATIN 10 MG TABLET PO SCH (09:10)
[2020-04-22] MEDS: PANTOPRAZOLE 40 MG TABLET PO SCH (09:10)
[2020-04-22] MEDS: GLIMEPIRIDE 2 MG TABLET PO SCH ×4 (09:10→19:44)
[2020-04-22] MEDS: DOCUSATE SODIUM 100 MG CAPSULE PO SCH ×2 (09:10→21:04)
[2020-04-22] MEDS: hydrALAZINE 25 MG TABLET PO SCH ×2 (09:11→21:04)
[2020-04-22] MEDS: PREGABALIN 50 MG CAPSULE PO SCH ×2 (09:11→21:04)
[2020-04-22] MEDS: FUROSEMIDE 40 MG/4 ML VIAL IV SCH ×2 (09:11→15:34)
[2020-04-22] MEDS: CLOPIDOGREL 75 MG TABLET PO SCH (09:11)
[2020-04-22] MEDS: LIDOCAINE 5% PATCH TRANSDERM SCH (09:12)
[2020-04-22] MEDS: INSULIN REGULAR 100 UNIT/ML SUBCUT SCH ×4 (12:59→21:03)
[2020-04-22] MEDS: ACETAMINOPHEN 325 MG TABLET PO PRN (15:27)
[2020-04-22] MEDS: cefTRIAXone 500 MG in SYRINGE 1 EACH IV SCH ×2 (19:30→20:04)
[2020-04-22] MEDS: INSULIN GLARGINE 100 UNIT/ML SUBCUT SCH (21:03)
[2020-04-23] MEDS: ACETAMINOPHEN 325 MG TABLET PO PRN (04:18)
[2020-04-23 05:59] LABS: Basophils # 0.1 10*3/uL (0.0-0.2); Basophils % 0.4 % (0.0-0.8); Eosinophils % 0.3 % (0.00-10.9); Hematocrit 28.7 VOL% (42.0-52.0); Hemoglobin 9.2 GM/DL (14.0-18.0); Immature Granulocytes % 0.7 %; Immature Granulocytes Absolute 0.09 #; Lymphocytes # 1.5 10*3/uL (1.4-4.0); Mean Corpuscular HGB Conc 32.1 GM/DL (32-36); Mean Corpuscular Volume 95.3 FL (87-102); Mean Platelet Volume 9.6 FL (9.6-12.0); Monocytes % 15.6 % (1.7-12.7); Platelet Count 366 T/CUMM (130-400); Red Blood Count 3.01 MC/CUMM (3.8-5.5); Red Cell Distribution Width 12.6 % (9.3-17.3); White Blood Count 12.5 T/CUMM (4-12)
[2020-04-23 06:17] LABS: Calcium 8.1 MG/DL (8.5-10.1); Osmolality,Calculated 273.8 MOS/KG (273-304)
[2020-04-23 06:34] LABS: Anisocytosis 1+; Band Neutrophils 4 % (0-10); Burr Cells Few; Eosinophils 2 % (0-10); Lymphocytes 13 % (20-55); Platelet Estimate Normal; Segmented Neutrophils 65 % (50-85); Total Cells Counted 100
[2020-04-23] MEDS: INSULIN REGULAR 100 UNIT/ML SUBCUT SCH ×2 (08:39→11:11)
[2020-04-23] MEDS: FUROSEMIDE 40 MG/4 ML VIAL IV SCH (08:43)
[2020-04-23] MEDS: hydrALAZINE 25 MG TABLET PO SCH (08:45)
[2020-04-23] MEDS: PREGABALIN 50 MG CAPSULE PO SCH (08:45)
[2020-04-23] MEDS: SIMVASTATIN 10 MG TABLET PO SCH (08:46)
[2020-04-23] MEDS: FERROUS SULFATE 325 MG TABLET PO SCH (08:46)
[2020-04-23] MEDS: FOLIC ACID 0.4 MG TABLET PO SCH (08:46)
[2020-04-23] MEDS: DOCUSATE SODIUM 100 MG CAPSULE PO SCH (08:46)
[2020-04-23] MEDS: PANTOPRAZOLE 40 MG TABLET PO SCH (08:46)
[2020-04-23] MEDS: APIXABAN 2.5 MG TABLET PO SCH (08:46)
[2020-04-23] MEDS: CLOPIDOGREL 75 MG TABLET PO SCH (08:47)
[2020-04-23] MEDS ORDERED: POTASSIUM CHLORIDE 20 MEQ TABLET PO ONE (09:09)
[2020-04-23] MEDS: GLIMEPIRIDE 2 MG TABLET PO SCH (10:30)
[2020-04-23] MEDS: LIDOCAINE 5% PATCH TRANSDERM SCH (10:30)
[2020-04-23 11:20] VITALS: BP 132/53
== END 2020-04-23 15:45 | DRG 551 ==
LOC: EDUNIT# → EDBD → N.ED 08:21 → N.EDINP 08:21 → N.3E 12:47 → SUPCPDRO 04-09 15:27 → N.4E 04-16 16:53
PROVIDERS: ADMIT Internal Medicine; ATTEND Internal Medicine

== ENCOUNTER 2021-11-11 11:05 | Inpatient (IN) ==
[2021-11-11] MEDS ORDERED: SODIUM CHLORIDE 0.9% 3,200 ML IV ONE (11:31)
[2021-11-11] MEDS ORDERED: VANCOMYCIN INJ 1,000 MG in SODIUM CHLORIDE 0.9% 250 ML IV STA (11:35)
[2021-11-11] MEDS ORDERED: MEROPENEM 1,000 MG in SODIUM CHLORIDE 0.9% 100 ML IV STA (11:35)
[2021-11-11 12:04] LABS: Basophils # 0.1 10*3/uL (0.0-0.2); Basophils % 0.2 % (0.0-0.8); Hematocrit 29.9 VOL% (42.0-52.0); Hemoglobin 9.4 GM/DL (14.0-18.0); Immature Granulocytes % 1.2 %; Immature Granulocytes Absolute 0.27 #; Lymphocytes % 4.3 % (21.2-54.2); Mean Corpuscular HGB Conc 31.4 GM/DL (32-36); Mean Platelet Volume 10.6 FL (9.6-12.0); Monocytes # 2.3 10*3/uL (0.11-0.8); Monocytes % 9.8 % (1.7-12.7); Neutrophils % 84.5 % (38.7-73.9); Platelet Count 260 T/CUMM (130-400); Red Blood Count 3.18 MC/CUMM (3.8-5.5); Red Cell Distribution Width 13.4 % (9.3-17.3)
[2021-11-11 12:10] LABS: Amorphous Crystals,Urine Few /HPF (Few); Bacteria,Urine Occasional /HPF (Few); Hyaline Casts,Urine 5 /LPF (0-3); Mucus,Urine Occasional /LPF (Occasional); Protein,Urine 30 mg/dL (Negative); RBC,Urine 6 /HPF (0-4); Squamous Epithelial Cell,Urine Occasional /HPF (0-10); Urine Appearance Clear (Clear); Urine Color Yellow (Yellow); Urine pH 5.5 (4.5-8.0)
[2021-11-11 12:11] LABS: Bilirubin,Urine Negative (Negative); Blood, Urine Negative (Negative); Glucose,Urine (UA) 250 mg/dL (Negative); Ketones,Urine Trace mg/dL (Negative); Nitrite,Urine Negative (Negative)
[2021-11-11 12:30] LABS: Lymphocytes 5 % (20-55); Platelet Estimate Adequate; Total Cells Counted 100
[2021-11-11 12:38] LABS: Albumin 2.7 G/DL (3.4-5.0); Calcium 9.4 MG/DL (8.5-10.1); Osmolality,Calculated 287.5 MOS/KG (273-304); Potassium 4.9 MMOL/L (3.5-5.1); Total Protein 7.5 G/DL (6.4-8.2)
[2021-11-11 13:15] LABS: Sedimentation Rate-Westergren 117 MM/HR (0-20)
[2021-11-11] MEDS ORDERED: MEROPENEM 500 MG in SODIUM CHLORIDE 0.9% 100 ML IV ONE (13:30)
[2021-11-11] MEDS ORDERED: hydrALAZINE 20 MG/1 ML VIAL IV PRN (14:50)
[2021-11-11] MEDS ORDERED: DOCUSATE SODIUM 100 MG CAPSULE PO PRN (14:50)
[2021-11-11] MEDS ORDERED: ONDANSETRON 4 MG/2 ML VIAL IV PRN (14:50)
[2021-11-11] MEDS ORDERED: DEXTROSE 10% 250 ML BAG IV PRN (14:50)
[2021-11-11] MEDS ORDERED: ALBUTEROL 2.5 MG/3 ML NEB RESP TX PRN (14:50)
[2021-11-11] MEDS ORDERED: GLUCAGON 1 MG VIAL IM PRN (14:50)
[2021-11-11] MEDS ORDERED: traMADol 50 MG TABLET PO PRN (15:39)
[2021-11-11] MEDS: SODIUM CHLORIDE 0.9% 1,000 ML IV SCH (17:32)
[2021-11-11] MEDS: INSULIN REGULAR 100 UNIT/ML SUBCUT SCH ×2 (17:38→21:32)
[2021-11-11] MEDS: cefTRIAXone 1,000 MG in SODIUM CHLORIDE 0.9% 100 ML IV SCH (21:31)
[2021-11-11] MEDS: SIMVASTATIN 10 MG TABLET PO SCH (21:31)
[2021-11-11] MEDS: PREGABALIN 50 MG CAPSULE PO SCH (21:31)
[2021-11-11] MEDS: INSULIN GLARGINE 100 UNIT/ML SUBCUT SCH (21:32)
[2021-11-11] MEDS: hydrALAZINE 25 MG TABLET PO SCH (21:33)
[2021-11-12] MEDS: ACETAMINOPHEN 325 MG TABLET PO PRN (01:17)
[2021-11-12] MEDS: SODIUM CHLORIDE 0.9% 1,000 ML IV SCH ×3 (01:18→21:19)
[2021-11-12 05:59] LABS: Basophils # 0.1 10*3/uL (0.0-0.2); Basophils % 0.3 % (0.0-0.8); Eosinophils # 0.2 10*3/uL (0.0-0.87); Hematocrit 30.9 VOL% (42.0-52.0); Hemoglobin 9.9 GM/DL (14.0-18.0); Immature Granulocytes Absolute 0.18 #; Lymphocytes # 1.9 10*3/uL (1.4-4.0); Lymphocytes % 10.7 % (21.2-54.2); Mean Corpuscular Volume 94.2 FL (87-102); Mean Platelet Volume 10.8 FL (9.6-12.0); Monocytes # 1.9 10*3/uL (0.11-0.8); Monocytes % 10.5 % (1.7-12.7); Neutrophils % 76.5 % (38.7-73.9); Platelet Count 265 T/CUMM (130-400); Red Blood Count 3.28 MC/CUMM (3.8-5.5); Red Cell Distribution Width 13.6 % (9.3-17.3); White Blood Count 17.9 T/CUMM (4-12)
[2021-11-12 06:19] LABS: Calcium 9.2 MG/DL (8.5-10.1); Osmolality,Calculated 284.7 MOS/KG (273-304); Potassium 4.4 MMOL/L (3.5-5.1)
[2021-11-12 06:30] LABS: Risk Ratio 3.14; Thyroid Stimulating Hormone 3.02 uIU/ml (0.358-3.74); VLDL Cholesterol 13.2 MG/DL
[2021-11-12] MEDS ORDERED: propofoL 200 MG/20 ML VIAL IV ONE (10:02)
[2021-11-12] MEDS ORDERED: LIDOCAINE 2% 5 ML VIAL ONE (10:02)
[2021-11-12] MEDS ORDERED: fentaNYL 100 MCG/2 ML VIAL ONE (10:02)
[2021-11-12] MEDS ORDERED: LIDOCAINE 1% 50 ML VIAL ONE (10:17)
[2021-11-12] MEDS ORDERED: LACTATED RINGERS 1,000 ML IV SCH (10:30)
[2021-11-12] MEDS: INSULIN REGULAR 100 UNIT/ML SUBCUT SCH ×3 (11:13→20:02)
[2021-11-12] MEDS ORDERED: ePHEDrine 50 MG/ML VIAL ONE (11:14)
[2021-11-12] MEDS ORDERED: ONDANSETRON 4 MG/2 ML VIAL ONE (11:22)
[2021-11-12] MEDS ORDERED: SEVOFLURANE 1 UNIT/15 MINUTE INH ONE (11:22)
[2021-11-12] MEDS ORDERED: ACETAMINOPHEN INJ 1,000 MG/100 ML VIAL IV ONE (11:43)
[2021-11-12] MEDS ORDERED: GLUCAGON 1 MG VIAL IM PRN (13:59)
[2021-11-12] MEDS ORDERED: DEXTROSE 50% 25 GM/50 ML VIAL IV PRN (13:59)
[2021-11-12] MEDS: MAGNESIUM OXIDE 400 MG TABLET PO SCH (15:00)
[2021-11-12] MEDS: MELOXICAM 7.5 MG TABLET PO SCH (15:00)
[2021-11-12] MEDS: PREGABALIN 50 MG CAPSULE PO SCH ×2 (15:00→21:18)
[2021-11-12] MEDS: FOLIC ACID 1 MG TABLET PO SCH (15:00)
[2021-11-12] MEDS: PANTOPRAZOLE 40 MG TABLET PO SCH (15:00)
[2021-11-12] MEDS: ASPIRIN EC 81 MG TABLET PO SCH (15:00)
[2021-11-12] MEDS: hydrALAZINE 25 MG TABLET PO SCH ×2 (17:30→21:19)
[2021-11-12] MEDS: VANCOMYCIN INJ 1,750 MG in SODIUM CHLORIDE 0.9% 500 ML IV SCH (20:03)
[2021-11-12] MEDS: INSULIN GLARGINE 100 UNIT/ML SUBCUT SCH (21:18)
[2021-11-12] MEDS: SIMVASTATIN 10 MG TABLET PO SCH (21:19)
[2021-11-12] MEDS: cefTRIAXone 1,000 MG in SODIUM CHLORIDE 0.9% 100 ML IV SCH (21:20)
[2021-11-13] MEDS: INSULIN REGULAR 100 UNIT/ML SUBCUT SCH ×5 (00:30→21:00)
[2021-11-13 08:42] LABS: Basophils # 0.1 10*3/uL (0.0-0.2); Basophils % 0.4 % (0.0-0.8); Eosinophils # 0.3 10*3/uL (0.0-0.87); Hematocrit 29.8 VOL% (42.0-52.0); Hemoglobin 9.3 GM/DL (14.0-18.0); Immature Granulocytes % 1.1 %; Immature Granulocytes Absolute 0.18 #; Lymphocytes # 1.5 10*3/uL (1.4-4.0); Lymphocytes % 9.6 % (21.2-54.2); Mean Corpuscular HGB Conc 31.2 GM/DL (32-36); Mean Corpuscular Volume 95.2 FL (87-102); Mean Platelet Volume 10.6 FL (9.6-12.0); Monocytes # 1.6 10*3/uL (0.11-0.8); Monocytes % 9.8 % (1.7-12.7); Neutrophils % 77.1 % (38.7-73.9); Platelet Count 290 T/CUMM (130-400); Red Blood Count 3.13 MC/CUMM (3.8-5.5); Red Cell Distribution Width 13.8 % (9.3-17.3); White Blood Count 16.1 T/CUMM (4-12)
[2021-11-13 08:55] LABS: Calcium 8.5 MG/DL (8.5-10.1); Osmolality,Calculated 280.4 MOS/KG (273-304); Potassium 4.2 MMOL/L (3.5-5.1)
[2021-11-13 09:02] LABS: Eosinophils 4 % (0-10); Hypochromia 1+; Lymphocytes 11 % (20-55); Microcytosis 1+; Ovalocytes Slight; Platelet Estimate Adequate; Total Cells Counted 100
[2021-11-13 09:03] LABS: Burr Cells Slight
[2021-11-13] MEDS: PREGABALIN 50 MG CAPSULE PO SCH ×2 (09:50→21:01)
[2021-11-13] MEDS: MAGNESIUM OXIDE 400 MG TABLET PO SCH (09:50)
[2021-11-13] MEDS: ASPIRIN EC 81 MG TABLET PO SCH (09:50)
[2021-11-13] MEDS: MELOXICAM 7.5 MG TABLET PO SCH (09:50)
[2021-11-13] MEDS: PANTOPRAZOLE 40 MG TABLET PO SCH (09:50)
[2021-11-13] MEDS: FOLIC ACID 1 MG TABLET PO SCH (09:50)
[2021-11-13] MEDS: hydrALAZINE 25 MG TABLET PO SCH ×2 (09:50→21:01)
[2021-11-13] MEDS: SODIUM HYPOCHLORITE 0.25% IRRIG 473 ML BOTTLE TOP SCH (12:59)
[2021-11-13] MEDS: SODIUM CHLORIDE 0.9% 1,000 ML IV SCH ×2 (12:59→23:50)
[2021-11-13] MEDS: VANCOMYCIN INJ 1,750 MG in SODIUM CHLORIDE 0.9% 500 ML IV SCH (17:05)
[2021-11-13] MEDS: DOCUSATE SODIUM 100 MG CAPSULE PO SCH (21:01)
[2021-11-13] MEDS: SIMVASTATIN 10 MG TABLET PO SCH (21:01)
[2021-11-13] MEDS: cefTRIAXone 1,000 MG in SODIUM CHLORIDE 0.9% 100 ML IV SCH (21:02)
[2021-11-13] MEDS: INSULIN GLARGINE 100 UNIT/ML SUBCUT SCH (21:02)
[2021-11-14 06:12] LABS: Basophils # 0.1 10*3/uL (0.0-0.2); Basophils % 0.3 % (0.0-0.8); Eosinophils # 0.3 10*3/uL (0.0-0.87); Eosinophils % 2.3 % (0.00-10.9); Hematocrit 29.3 VOL% (42.0-52.0); Hemoglobin 9.2 GM/DL (14.0-18.0); Immature Granulocytes % 0.7 %; Lymphocytes % 13.7 % (21.2-54.2); Mean Corpuscular HGB Conc 31.4 GM/DL (32-36); Mean Corpuscular Volume 93.6 FL (87-102); Mean Platelet Volume 10.4 FL (9.6-12.0); Monocytes # 1.8 10*3/uL (0.11-0.8); Monocytes % 12.7 % (1.7-12.7); Neutrophils % 70.3 % (38.7-73.9); Platelet Count 306 T/CUMM (130-400); Red Blood Count 3.13 MC/CUMM (3.8-5.5); Red Cell Distribution Width 13.8 % (9.3-17.3); White Blood Count 14.3 T/CUMM (4-12)
[2021-11-14 06:29] LABS: Calcium 8.8 MG/DL (8.5-10.1); Osmolality,Calculated 271.8 MOS/KG (273-304); Potassium 4.2 MMOL/L (3.5-5.1)
[2021-11-14] MEDS ORDERED: DEXTROSE 50% 25 GM/50 ML VIAL IV PRN (08:10)
[2021-11-14] MEDS ORDERED: GLUCAGON 1 MG VIAL IM PRN (08:10)
[2021-11-14] MEDS: INSULIN REGULAR 100 UNIT/ML SUBCUT SCH ×4 (08:50→20:35)
[2021-11-14] MEDS: SODIUM HYPOCHLORITE 0.25% IRRIG 473 ML BOTTLE TOP SCH (08:51)
[2021-11-14] MEDS: MELOXICAM 7.5 MG TABLET PO SCH (08:51)
[2021-11-14] MEDS: DOCUSATE SODIUM 100 MG CAPSULE PO SCH ×2 (08:51→20:35)
[2021-11-14] MEDS: MAGNESIUM OXIDE 400 MG TABLET PO SCH (08:52)
[2021-11-14] MEDS: PREGABALIN 50 MG CAPSULE PO SCH ×2 (08:52→20:36)
[2021-11-14] MEDS: PANTOPRAZOLE 40 MG TABLET PO SCH (08:52)
[2021-11-14] MEDS: ASPIRIN EC 81 MG TABLET PO SCH (08:52)
[2021-11-14] MEDS: POLYETHYLENE GLYCOL POWDER 17 GM PACK PO SCH (08:52)
[2021-11-14] MEDS: hydrALAZINE 25 MG TABLET PO SCH ×2 (08:52→20:35)
[2021-11-14] MEDS: FOLIC ACID 1 MG TABLET PO SCH (08:52)
[2021-11-14] MEDS: LOSARTAN 50 MG TABLET PO SCH (08:54)
[2021-11-14] MEDS: ENOXAPARIN 40 MG/0.4 ML SYRINGE SUBCUT SCH (16:09)
[2021-11-14] MEDS: VANCOMYCIN INJ 1,750 MG in SODIUM CHLORIDE 0.9% 500 ML IV SCH (16:10)
[2021-11-14] MEDS: cefTRIAXone 1,000 MG in SODIUM CHLORIDE 0.9% 100 ML IV SCH (20:34)
[2021-11-14] MEDS: SIMVASTATIN 10 MG TABLET PO SCH (20:35)
[2021-11-14] MEDS: INSULIN GLARGINE 100 UNIT/ML SUBCUT SCH (20:39)
[2021-11-15] MEDS: SODIUM CHLORIDE 0.9% 1,000 ML IV SCH (02:05)
[2021-11-15 06:24] LABS: Basophils # 0.1 10*3/uL (0.0-0.2); Basophils % 0.4 % (0.0-0.8); Eosinophils # 0.2 10*3/uL (0.0-0.87); Eosinophils % 1.9 % (0.00-10.9); Hemoglobin 8.2 GM/DL (14.0-18.0); Immature Granulocytes % 0.9 %; Immature Granulocytes Absolute 0.11 #; Lymphocytes # 1.7 10*3/uL (1.4-4.0); Lymphocytes % 14.3 % (21.2-54.2); Mean Corpuscular HGB Conc 31.5 GM/DL (32-36); Mean Corpuscular Volume 93.2 FL (87-102); Mean Platelet Volume 10.5 FL (9.6-12.0); Monocytes # 1.4 10*3/uL (0.11-0.8); Monocytes % 12.2 % (1.7-12.7); Neutrophils % 70.3 % (38.7-73.9); Platelet Count 324 T/CUMM (130-400); Red Blood Count 2.79 MC/CUMM (3.8-5.5); Red Cell Distribution Width 13.7 % (9.3-17.3); White Blood Count 11.7 T/CUMM (4-12)
[2021-11-15 06:40] LABS: Calcium 8.8 MG/DL (8.5-10.1); Osmolality,Calculated 275.8 MOS/KG (273-304); Potassium 4.2 MMOL/L (3.5-5.1)
[2021-11-15] MEDS: INSULIN REGULAR 100 UNIT/ML SUBCUT SCH ×4 (09:18→21:27)
[2021-11-15] MEDS: MAGNESIUM OXIDE 400 MG TABLET PO SCH (09:19)
[2021-11-15] MEDS: SODIUM HYPOCHLORITE 0.25% IRRIG 473 ML BOTTLE TOP SCH (09:19)
[2021-11-15] MEDS: POLYETHYLENE GLYCOL POWDER 17 GM PACK PO SCH (09:19)
[2021-11-15] MEDS: PANTOPRAZOLE 40 MG TABLET PO SCH (09:20)
[2021-11-15] MEDS: LOSARTAN 50 MG TABLET PO SCH (09:20)
[2021-11-15] MEDS: PREGABALIN 50 MG CAPSULE PO SCH ×2 (09:20→21:29)
[2021-11-15] MEDS: MELOXICAM 7.5 MG TABLET PO SCH (09:20)
[2021-11-15] MEDS: ASPIRIN EC 81 MG TABLET PO SCH (09:20)
[2021-11-15] MEDS: DOCUSATE SODIUM 100 MG CAPSULE PO SCH ×2 (09:20→21:29)
[2021-11-15] MEDS: hydrALAZINE 25 MG TABLET PO SCH ×2 (09:22→21:29)
[2021-11-15] MEDS: FOLIC ACID 1 MG TABLET PO SCH (09:22)
[2021-11-15] MEDS ORDERED: VANCOMYCIN INJ 1,750 MG in SODIUM CHLORIDE 0.9% 500 ML IV SCH (10:00)
[2021-11-15] MEDS: ENOXAPARIN 40 MG/0.4 ML SYRINGE SUBCUT SCH (15:41)
[2021-11-15] MEDS: LINEZOLID 600 MG TABLET PO SCH (21:28)
[2021-11-15] MEDS: INSULIN GLARGINE 100 UNIT/ML SUBCUT SCH (21:28)
[2021-11-15] MEDS: ACETAMINOPHEN 325 MG TABLET PO PRN (21:29)
[2021-11-15] MEDS: SIMVASTATIN 10 MG TABLET PO SCH (21:29)
[2021-11-16] MEDS: SODIUM CHLORIDE 0.9% 1,000 ML IV SCH ×2 (00:32→21:25)
[2021-11-16 05:07] LABS: Basophils # 0.1 10*3/uL (0.0-0.2); Basophils % 0.5 % (0.0-0.8); Eosinophils # 0.3 10*3/uL (0.0-0.87); Eosinophils % 2.6 % (0.00-10.9); Hematocrit 26.5 VOL% (42.0-52.0); Hemoglobin 8.3 GM/DL (14.0-18.0); Immature Granulocytes Absolute 0.11 #; Lymphocytes # 1.5 10*3/uL (1.4-4.0); Mean Corpuscular HGB Conc 31.3 GM/DL (32-36); Mean Corpuscular Volume 93.6 FL (87-102); Mean Platelet Volume 10.4 FL (9.6-12.0); Monocytes # 1.4 10*3/uL (0.11-0.8); Monocytes % 12.8 % (1.7-12.7); Neutrophils % 69.1 % (38.7-73.9); Platelet Count 338 T/CUMM (130-400); Red Blood Count 2.83 MC/CUMM (3.8-5.5); Red Cell Distribution Width 13.6 % (9.3-17.3); White Blood Count 10.8 T/CUMM (4-12)
[2021-11-16 05:30] LABS: Calcium 8.7 MG/DL (8.5-10.1); Potassium 4.2 MMOL/L (3.5-5.1)
[2021-11-16] MEDS: INSULIN REGULAR 100 UNIT/ML SUBCUT SCH ×4 (08:36→21:25)
[2021-11-16] MEDS: ASPIRIN EC 81 MG TABLET PO SCH (08:37)
[2021-11-16] MEDS: hydrALAZINE 25 MG TABLET PO SCH ×2 (08:37→21:24)
[2021-11-16] MEDS: DOCUSATE SODIUM 100 MG CAPSULE PO SCH ×2 (11:06→21:24)
[2021-11-16] MEDS: LOSARTAN 50 MG TABLET PO SCH (11:06)
[2021-11-16] MEDS: FOLIC ACID 1 MG TABLET PO SCH (11:06)
[2021-11-16] MEDS: PANTOPRAZOLE 40 MG TABLET PO SCH (11:07)
[2021-11-16] MEDS: POLYETHYLENE GLYCOL POWDER 17 GM PACK PO SCH (11:07)
[2021-11-16] MEDS: LINEZOLID 600 MG TABLET PO SCH (11:07)
[2021-11-16] MEDS: MELOXICAM 7.5 MG TABLET PO SCH (11:07)
[2021-11-16] MEDS: MAGNESIUM OXIDE 400 MG TABLET PO SCH (11:07)
[2021-11-16] MEDS: PREGABALIN 50 MG CAPSULE PO SCH ×2 (11:08→21:25)
[2021-11-16] MEDS: cephALEXin 500 MG CAPSULE PO SCH ×2 (12:58→16:51)
[2021-11-16] MEDS: SODIUM HYPOCHLORITE 0.25% IRRIG 473 ML BOTTLE TOP SCH (15:11)
[2021-11-16] MEDS ORDERED: DEXTROSE 10% 250 ML BAG IV PRN (15:23)
[2021-11-16] MEDS: ENOXAPARIN 40 MG/0.4 ML SYRINGE SUBCUT SCH (16:51)
[2021-11-16] MEDS: SIMVASTATIN 10 MG TABLET PO SCH (21:24)
[2021-11-16] MEDS: INSULIN GLARGINE 100 UNIT/ML SUBCUT SCH (21:25)
[2021-11-17 06:13] LABS: Basophils # 0.1 10*3/uL (0.0-0.2); Basophils % 0.5 % (0.0-0.8); Eosinophils # 0.3 10*3/uL (0.0-0.87); Eosinophils % 2.6 % (0.00-10.9); Hematocrit 26.1 VOL% (42.0-52.0); Hemoglobin 8.2 GM/DL (14.0-18.0); Immature Granulocytes % 1.4 %; Immature Granulocytes Absolute 0.14 #; Lymphocytes # 1.4 10*3/uL (1.4-4.0); Lymphocytes % 14.8 % (21.2-54.2); Mean Corpuscular HGB Conc 31.4 GM/DL (32-36); Mean Corpuscular Volume 93.9 FL (87-102); Mean Platelet Volume 10.4 FL (9.6-12.0); Monocytes # 1.3 10*3/uL (0.11-0.8); Monocytes % 13.7 % (1.7-12.7); Platelet Count 358 T/CUMM (130-400); Red Blood Count 2.78 MC/CUMM (3.8-5.5); Red Cell Distribution Width 13.5 % (9.3-17.3); White Blood Count 9.8 T/CUMM (4-12)
[2021-11-17 06:27] LABS: Calcium 8.9 MG/DL (8.5-10.1); Osmolality,Calculated 274.8 MOS/KG (273-304); Potassium 4.3 MMOL/L (3.5-5.1)
[2021-11-17] MEDS: ASPIRIN EC 81 MG TABLET PO SCH (10:02)
[2021-11-17] MEDS: cephALEXin 500 MG CAPSULE PO SCH ×3 (10:02→18:08)
[2021-11-17] MEDS: DOCUSATE SODIUM 100 MG CAPSULE PO SCH ×2 (10:02→21:01)
[2021-11-17] MEDS: INSULIN REGULAR 100 UNIT/ML SUBCUT SCH ×4 (10:02→21:01)
[2021-11-17] MEDS: MAGNESIUM OXIDE 400 MG TABLET PO SCH (10:03)
[2021-11-17] MEDS: POLYETHYLENE GLYCOL POWDER 17 GM PACK PO SCH (10:03)
[2021-11-17] MEDS: FOLIC ACID 1 MG TABLET PO SCH (10:03)
[2021-11-17] MEDS: MELOXICAM 7.5 MG TABLET PO SCH (10:03)
[2021-11-17] MEDS: hydrALAZINE 25 MG TABLET PO SCH ×2 (10:04→21:01)
[2021-11-17] MEDS: PANTOPRAZOLE 40 MG TABLET PO SCH (10:04)
[2021-11-17] MEDS: SODIUM HYPOCHLORITE 0.25% IRRIG 473 ML BOTTLE TOP SCH (10:05)
[2021-11-17] MEDS: LOSARTAN 50 MG TABLET PO SCH (10:07)
[2021-11-17] MEDS: PREGABALIN 50 MG CAPSULE PO SCH ×2 (10:50→21:01)
[2021-11-17] MEDS ORDERED: fentaNYL 100 MCG/2 ML VIAL IV ONE (11:00)
[2021-11-17] MEDS ORDERED: MIDAZOLAM 2 MG/2 ML VIAL IV ONE (11:00)
[2021-11-17] MEDS ORDERED: HEPARIN/NACL 0.9% 2 UNITS/ML 4,000 UNIT/2,000 ML BAG IV ONE (11:00)
[2021-11-17] MEDS ORDERED: DIAZEPAM 5 MG TABLET PO ONE (11:00)
[2021-11-17] MEDS ORDERED: HEPARIN 5,000 UNIT/1 ML VIAL ONE (11:02)
[2021-11-17] MEDS: SODIUM CHLORIDE 0.45% 1,000 ML IV SCH (11:28)
[2021-11-17] MEDS ORDERED: GLUCAGON 1 MG VIAL IM PRN (15:12)
[2021-11-17] MEDS ORDERED: DEXTROSE 50% 25 GM/50 ML VIAL IV PRN (15:12)
[2021-11-17] MEDS: SODIUM CHLORIDE 0.9% 1,000 ML IV SCH (18:07)
[2021-11-17] MEDS: ENOXAPARIN 40 MG/0.4 ML SYRINGE SUBCUT SCH (18:08)
[2021-11-17] MEDS: SIMVASTATIN 10 MG TABLET PO SCH (21:01)
[2021-11-17] MEDS: INSULIN GLARGINE 100 UNIT/ML SUBCUT SCH (21:01)
[2021-11-18] MEDS: INSULIN REGULAR 100 UNIT/ML SUBCUT SCH ×4 (07:30→20:30)
[2021-11-18] MEDS: cephALEXin 500 MG CAPSULE PO SCH ×3 (08:00→16:28)
[2021-11-18] MEDS: POLYETHYLENE GLYCOL POWDER 17 GM PACK PO SCH (09:00)
[2021-11-18] MEDS: DOCUSATE SODIUM 100 MG CAPSULE PO SCH ×2 (09:00→20:31)
[2021-11-18] MEDS: ASPIRIN EC 81 MG TABLET PO SCH (09:00)
[2021-11-18] MEDS ORDERED: GLUCAGON 1 MG VIAL IM PRN (11:15)
[2021-11-18] MEDS ORDERED: DEXTROSE 10% 250 ML BAG IV PRN (11:33)
[2021-11-18] MEDS: MELOXICAM 7.5 MG TABLET PO SCH (12:07)
[2021-11-18] MEDS: LOSARTAN 50 MG TABLET PO SCH (12:07)
[2021-11-18] MEDS: PANTOPRAZOLE 40 MG TABLET PO SCH (12:08)
[2021-11-18] MEDS: FOLIC ACID 1 MG TABLET PO SCH (12:08)
[2021-11-18] MEDS: MAGNESIUM OXIDE 400 MG TABLET PO SCH (12:08)
[2021-11-18] MEDS: PREGABALIN 50 MG CAPSULE PO SCH ×2 (12:08→20:30)
[2021-11-18] MEDS: hydrALAZINE 25 MG TABLET PO SCH ×2 (12:08→20:30)
[2021-11-18] MEDS: SODIUM HYPOCHLORITE 0.25% IRRIG 473 ML BOTTLE TOP SCH (12:09)
[2021-11-18] MEDS: metroNIDAZOLE INJ 500 MG/100 ML PREMIX IV SCH ×2 (12:20→18:54)
[2021-11-18] MEDS: ENOXAPARIN 40 MG/0.4 ML SYRINGE SUBCUT SCH (16:27)
[2021-11-18] MEDS: SODIUM CHLORIDE 0.45% 1,000 ML IV SCH (16:28)
[2021-11-18] MEDS: INSULIN GLARGINE 100 UNIT/ML SUBCUT SCH (20:30)
[2021-11-18] MEDS: SIMVASTATIN 10 MG TABLET PO SCH (20:30)
[2021-11-18] MEDS: SODIUM CHLORIDE 0.9% 1,000 ML IV SCH (21:59)
[2021-11-19] MEDS: metroNIDAZOLE INJ 500 MG/100 ML PREMIX IV SCH ×3 (02:22→21:16)
[2021-11-19 06:11] LABS: Basophils # 0.1 10*3/uL (0.0-0.2); Basophils % 0.6 % (0.0-0.8); Eosinophils # 0.2 10*3/uL (0.0-0.87); Eosinophils % 2.5 % (0.00-10.9); Hematocrit 28.1 VOL% (42.0-52.0); Hemoglobin 8.8 GM/DL (14.0-18.0); Immature Granulocytes % 1.5 %; Immature Granulocytes Absolute 0.14 #; Lymphocytes # 1.7 10*3/uL (1.4-4.0); Lymphocytes % 17.3 % (21.2-54.2); Mean Corpuscular HGB Conc 31.3 GM/DL (32-36); Mean Platelet Volume 9.8 FL (9.6-12.0); Monocytes # 1.3 10*3/uL (0.11-0.8); Monocytes % 13.5 % (1.7-12.7); Neutrophils % 64.6 % (38.7-73.9); Platelet Count 461 T/CUMM (130-400); Red Blood Count 2.99 MC/CUMM (3.8-5.5); Red Cell Distribution Width 13.4 % (9.3-17.3); White Blood Count 9.6 T/CUMM (4-12)
[2021-11-19 06:25] LABS: Calcium 9.4 MG/DL (8.5-10.1); Potassium 4.3 MMOL/L (3.5-5.1)
[2021-11-19] MEDS: cephALEXin 500 MG CAPSULE PO SCH ×3 (09:53→16:10)
[2021-11-19] MEDS: INSULIN REGULAR 100 UNIT/ML SUBCUT SCH ×4 (09:53→21:16)
[2021-11-19] MEDS: LOSARTAN 50 MG TABLET PO SCH (10:02)
[2021-11-19] MEDS: hydrALAZINE 25 MG TABLET PO SCH ×2 (10:02→21:15)
[2021-11-19] MEDS: ASPIRIN EC 81 MG TABLET PO SCH (10:03)
[2021-11-19] MEDS: SODIUM HYPOCHLORITE 0.25% IRRIG 473 ML BOTTLE TOP SCH (10:05)
[2021-11-19] MEDS: DOCUSATE SODIUM 100 MG CAPSULE PO SCH ×2 (10:05→22:10)
[2021-11-19] MEDS: PREGABALIN 50 MG CAPSULE PO SCH ×2 (10:05→21:15)
[2021-11-19] MEDS: FOLIC ACID 1 MG TABLET PO SCH (10:05)
[2021-11-19] MEDS: PANTOPRAZOLE 40 MG TABLET PO SCH (10:06)
[2021-11-19] MEDS: POLYETHYLENE GLYCOL POWDER 17 GM PACK PO SCH (10:06)
[2021-11-19] MEDS: MELOXICAM 7.5 MG TABLET PO SCH (10:06)
[2021-11-19] MEDS: MAGNESIUM OXIDE 400 MG TABLET PO SCH (10:06)
[2021-11-19] MEDS ORDERED: BUPIVACAINE MPF 0.25% 30 ML VIAL ONE (10:31)
[2021-11-19] MEDS ORDERED: LIDOCAINE 1% 50 ML VIAL ONE (10:31)
[2021-11-19] MEDS ORDERED: LACTATED RINGERS 1,000 ML IV SCH (11:00)
[2021-11-19] MEDS ORDERED: MIDAZOLAM 2 MG/2 ML VIAL ONE (11:44)
[2021-11-19] MEDS ORDERED: DEXMEDETOMIDINE 200 MCG/2 ML VIAL ONE (11:48)
[2021-11-19] MEDS: SODIUM CHLORIDE 0.45% 1,000 ML IV SCH (14:02)
[2021-11-19] MEDS: ENOXAPARIN 40 MG/0.4 ML SYRINGE SUBCUT SCH (16:09)
[2021-11-19] MEDS ORDERED: DEXTROSE 50% 25 GM/50 ML VIAL IV PRN (20:27)
[2021-11-19] MEDS: INSULIN GLARGINE 100 UNIT/ML SUBCUT SCH (21:15)
[2021-11-19] MEDS: SIMVASTATIN 10 MG TABLET PO SCH (21:15)
[2021-11-20] MEDS: metroNIDAZOLE INJ 500 MG/100 ML PREMIX IV SCH ×3 (05:17→21:14)
[2021-11-20 08:29] LABS: Basophils # 0.1 10*3/uL (0.0-0.2); Basophils % 0.6 % (0.0-0.8); Eosinophils # 0.2 10*3/uL (0.0-0.87); Eosinophils % 1.6 % (0.00-10.9); Hematocrit 29.1 VOL% (42.0-52.0); Immature Granulocytes % 0.8 %; Immature Granulocytes Absolute 0.09 #; Lymphocytes # 2.1 10*3/uL (1.4-4.0); Lymphocytes % 18.4 % (21.2-54.2); Mean Corpuscular HGB Conc 30.9 GM/DL (32-36); Mean Corpuscular Volume 93.3 FL (87-102); Mean Platelet Volume 9.3 FL (9.6-12.0); Monocytes # 1.1 10*3/uL (0.11-0.8); Monocytes % 9.4 % (1.7-12.7); Neutrophils % 69.2 % (38.7-73.9); Platelet Count 503 T/CUMM (130-400); Red Blood Count 3.12 MC/CUMM (3.8-5.5); Red Cell Distribution Width 13.6 % (9.3-17.3); White Blood Count 11.4 T/CUMM (4-12)
[2021-11-20] MEDS: DOCUSATE SODIUM 100 MG CAPSULE PO SCH ×2 (08:40→21:13)
[2021-11-20] MEDS: MELOXICAM 7.5 MG TABLET PO SCH (08:40)
[2021-11-20] MEDS: PREGABALIN 50 MG CAPSULE PO SCH ×2 (08:40→21:13)
[2021-11-20] MEDS: INSULIN REGULAR 100 UNIT/ML SUBCUT SCH ×4 (08:40→21:14)
[2021-11-20] MEDS: MAGNESIUM OXIDE 400 MG TABLET PO SCH (08:40)
[2021-11-20] MEDS: cephALEXin 500 MG CAPSULE PO SCH ×3 (08:41→16:53)
[2021-11-20] MEDS: ASPIRIN EC 81 MG TABLET PO SCH (08:41)
[2021-11-20] MEDS: LOSARTAN 50 MG TABLET PO SCH (08:41)
[2021-11-20] MEDS: FOLIC ACID 1 MG TABLET PO SCH (08:41)
[2021-11-20] MEDS: PANTOPRAZOLE 40 MG TABLET PO SCH (08:41)
[2021-11-20] MEDS: POLYETHYLENE GLYCOL POWDER 17 GM PACK PO SCH (08:41)
[2021-11-20] MEDS: SODIUM HYPOCHLORITE 0.25% IRRIG 473 ML BOTTLE TOP SCH (08:41)
[2021-11-20] MEDS: hydrALAZINE 25 MG TABLET PO SCH ×2 (08:41→21:13)
[2021-11-20 08:51] LABS: Osmolality,Calculated 271.1 MOS/KG (273-304); Potassium 4.4 MMOL/L (3.5-5.1)
[2021-11-20] MEDS: ENOXAPARIN 40 MG/0.4 ML SYRINGE SUBCUT SCH (15:54)
[2021-11-20] MEDS: SIMVASTATIN 10 MG TABLET PO SCH (21:13)
[2021-11-20] MEDS: INSULIN GLARGINE 100 UNIT/ML SUBCUT SCH (21:14)
[2021-11-21 04:58] LABS: Basophils # 0.1 10*3/uL (0.0-0.2); Basophils % 0.8 % (0.0-0.8); Eosinophils # 0.2 10*3/uL (0.0-0.87); Hematocrit 26.3 VOL% (42.0-52.0); Hemoglobin 8.3 GM/DL (14.0-18.0); Lymphocytes # 1.8 10*3/uL (1.4-4.0); Lymphocytes % 17.1 % (21.2-54.2); Mean Corpuscular HGB Conc 31.6 GM/DL (32-36); Mean Corpuscular Volume 93.6 FL (87-102); Mean Platelet Volume 9.2 FL (9.6-12.0); Monocytes # 1.5 10*3/uL (0.11-0.8); Monocytes % 14.1 % (1.7-12.7); Platelet Count 461 T/CUMM (130-400); Red Blood Count 2.81 MC/CUMM (3.8-5.5); Red Cell Distribution Width 13.5 % (9.3-17.3); White Blood Count 10.4 T/CUMM (4-12)
[2021-11-21 05:16] LABS: Potassium 4.2 MMOL/L (3.5-5.1)
[2021-11-21] MEDS: metroNIDAZOLE INJ 500 MG/100 ML PREMIX IV SCH ×3 (06:08→21:53)
[2021-11-21] MEDS: DOCUSATE SODIUM 100 MG CAPSULE PO SCH ×2 (09:00→21:51)
[2021-11-21] MEDS: PANTOPRAZOLE 40 MG TABLET PO SCH (09:00)
[2021-11-21] MEDS: INSULIN REGULAR 100 UNIT/ML SUBCUT SCH ×4 (09:00→21:52)
[2021-11-21] MEDS: hydrALAZINE 25 MG TABLET PO SCH ×2 (09:00→21:51)
[2021-11-21] MEDS: POLYETHYLENE GLYCOL POWDER 17 GM PACK PO SCH (09:00)
[2021-11-21] MEDS: LOSARTAN 50 MG TABLET PO SCH (09:00)
[2021-11-21] MEDS: MELOXICAM 7.5 MG TABLET PO SCH (09:00)
[2021-11-21] MEDS: PREGABALIN 50 MG CAPSULE PO SCH ×2 (09:00→21:51)
[2021-11-21] MEDS: FOLIC ACID 1 MG TABLET PO SCH (09:00)
[2021-11-21] MEDS: ASPIRIN EC 81 MG TABLET PO SCH (09:00)
[2021-11-21] MEDS: MAGNESIUM OXIDE 400 MG TABLET PO SCH (09:00)
[2021-11-21] MEDS: SODIUM HYPOCHLORITE 0.25% IRRIG 473 ML BOTTLE TOP SCH (12:00)
[2021-11-21] MEDS: LEVOFLOXACIN 500 MG TABLET PO SCH (15:37)
[2021-11-21] MEDS: ENOXAPARIN 40 MG/0.4 ML SYRINGE SUBCUT SCH (15:40)
[2021-11-21] MEDS: cephALEXin 500 MG CAPSULE PO SCH (19:35)
[2021-11-21] MEDS: SIMVASTATIN 10 MG TABLET PO SCH (21:51)
[2021-11-21] MEDS: INSULIN GLARGINE 100 UNIT/ML SUBCUT SCH (21:51)
[2021-11-22] MEDS: metroNIDAZOLE INJ 500 MG/100 ML PREMIX IV SCH ×3 (05:53→21:59)
[2021-11-22] MEDS: INSULIN REGULAR 100 UNIT/ML SUBCUT SCH ×4 (07:30→21:59)
[2021-11-22] MEDS: MELOXICAM 7.5 MG TABLET PO SCH (09:23)
[2021-11-22] MEDS: ASPIRIN EC 81 MG TABLET PO SCH (09:23)
[2021-11-22] MEDS: POLYETHYLENE GLYCOL POWDER 17 GM PACK PO SCH (09:23)
[2021-11-22] MEDS: DOCUSATE SODIUM 100 MG CAPSULE PO SCH ×2 (09:23→21:59)
[2021-11-22] MEDS: FOLIC ACID 1 MG TABLET PO SCH (09:24)
[2021-11-22] MEDS: LEVOFLOXACIN 500 MG TABLET PO SCH (09:24)
[2021-11-22] MEDS: PREGABALIN 50 MG CAPSULE PO SCH ×2 (09:24→21:59)
[2021-11-22] MEDS: hydrALAZINE 25 MG TABLET PO SCH ×2 (09:24→21:59)
[2021-11-22] MEDS: PANTOPRAZOLE 40 MG TABLET PO SCH (09:24)
[2021-11-22] MEDS: MAGNESIUM OXIDE 400 MG TABLET PO SCH (09:24)
[2021-11-22] MEDS: LOSARTAN 50 MG TABLET PO SCH (09:29)
[2021-11-22] MEDS: SODIUM HYPOCHLORITE 0.25% IRRIG 473 ML BOTTLE TOP SCH (09:30)
[2021-11-22] MEDS: ENOXAPARIN 40 MG/0.4 ML SYRINGE SUBCUT SCH (16:35)
[2021-11-22] MEDS: SIMVASTATIN 10 MG TABLET PO SCH (21:59)
[2021-11-22] MEDS: INSULIN GLARGINE 100 UNIT/ML SUBCUT SCH (21:59)
[2021-11-23] MEDS: metroNIDAZOLE INJ 500 MG/100 ML PREMIX IV SCH ×3 (06:07→21:07)
[2021-11-23 06:47] LABS: Basophils # 0.1 10*3/uL (0.0-0.2); Basophils % 0.8 % (0.0-0.8); Eosinophils # 0.3 10*3/uL (0.0-0.87); Eosinophils % 2.4 % (0.00-10.9); Hematocrit 26.8 VOL% (42.0-52.0); Hemoglobin 8.5 GM/DL (14.0-18.0); Immature Granulocytes % 0.7 %; Immature Granulocytes Absolute 0.07 #; Lymphocytes # 1.8 10*3/uL (1.4-4.0); Lymphocytes % 17.1 % (21.2-54.2); Mean Corpuscular HGB Conc 31.7 GM/DL (32-36); Mean Platelet Volume 9.3 FL (9.6-12.0); Monocytes # 1.6 10*3/uL (0.11-0.8); Monocytes % 15.1 % (1.7-12.7); Neutrophils % 63.9 % (38.7-73.9); Platelet Count 461 T/CUMM (130-400); Red Blood Count 2.85 MC/CUMM (3.8-5.5); Red Cell Distribution Width 13.6 % (9.3-17.3); White Blood Count 10.3 T/CUMM (4-12)
[2021-11-23 06:53] LABS: Calcium 9.2 MG/DL (8.5-10.1); Potassium 4.1 MMOL/L (3.5-5.1)
[2021-11-23] MEDS: INSULIN REGULAR 100 UNIT/ML SUBCUT SCH ×5 (09:36→21:08)
[2021-11-23] MEDS: MAGNESIUM OXIDE 400 MG TABLET PO SCH (09:58)
[2021-11-23] MEDS: PREGABALIN 50 MG CAPSULE PO SCH ×2 (09:58→21:09)
[2021-11-23] MEDS: DOCUSATE SODIUM 100 MG CAPSULE PO SCH ×2 (09:58→21:09)
[2021-11-23] MEDS: hydrALAZINE 25 MG TABLET PO SCH ×2 (09:58→21:09)
[2021-11-23] MEDS: POLYETHYLENE GLYCOL POWDER 17 GM PACK PO SCH (09:58)
[2021-11-23] MEDS: LOSARTAN 50 MG TABLET PO SCH (09:58)
[2021-11-23] MEDS: LEVOFLOXACIN 500 MG TABLET PO SCH (09:58)
[2021-11-23] MEDS: MELOXICAM 7.5 MG TABLET PO SCH (09:58)
[2021-11-23] MEDS: PANTOPRAZOLE 40 MG TABLET PO SCH (09:58)
[2021-11-23] MEDS: FOLIC ACID 1 MG TABLET PO SCH (09:59)
[2021-11-23] MEDS: ASPIRIN EC 81 MG TABLET PO SCH (09:59)
[2021-11-23] MEDS: SODIUM HYPOCHLORITE 0.25% IRRIG 473 ML BOTTLE TOP SCH (09:59)
[2021-11-23] MEDS: cephALEXin 500 MG CAPSULE PO SCH ×2 (16:20→21:09)
[2021-11-23] MEDS: ENOXAPARIN 40 MG/0.4 ML SYRINGE SUBCUT SCH (16:20)
[2021-11-23] MEDS: INSULIN GLARGINE 100 UNIT/ML SUBCUT SCH (21:08)
[2021-11-23] MEDS: SIMVASTATIN 10 MG TABLET PO SCH (21:09)
[2021-11-24] MEDS: cephALEXin 500 MG CAPSULE PO SCH ×3 (05:07→21:39)
[2021-11-24] MEDS: metroNIDAZOLE INJ 500 MG/100 ML PREMIX IV SCH ×3 (05:50→21:53)
[2021-11-24 06:51] LABS: Basophils # 0.1 10*3/uL (0.0-0.2); Basophils % 1.2 % (0.0-0.8); Eosinophils # 0.2 10*3/uL (0.0-0.87); Eosinophils % 2.3 % (0.00-10.9); Hematocrit 27.9 VOL% (42.0-52.0); Hemoglobin 8.8 GM/DL (14.0-18.0); Immature Granulocytes % 0.6 %; Immature Granulocytes Absolute 0.06 #; Lymphocytes # 1.6 10*3/uL (1.4-4.0); Mean Corpuscular HGB Conc 31.5 GM/DL (32-36); Mean Corpuscular Volume 93.6 FL (87-102); Mean Platelet Volume 9.2 FL (9.6-12.0); Monocytes # 1.6 10*3/uL (0.11-0.8); Neutrophils % 65.9 % (38.7-73.9); Platelet Count 463 T/CUMM (130-400); Red Blood Count 2.98 MC/CUMM (3.8-5.5); Red Cell Distribution Width 13.6 % (9.3-17.3); White Blood Count 10.4 T/CUMM (4-12)
[2021-11-24 07:29] LABS: Calcium 8.9 MG/DL (8.5-10.1); Osmolality,Calculated 275.1 MOS/KG (273-304); Potassium 4.6 MMOL/L (3.5-5.1)
[2021-11-24] MEDS: MELOXICAM 7.5 MG TABLET PO SCH (08:42)
[2021-11-24] MEDS: LOSARTAN 50 MG TABLET PO SCH (08:42)
[2021-11-24] MEDS: FOLIC ACID 1 MG TABLET PO SCH (08:42)
[2021-11-24] MEDS: PREGABALIN 50 MG CAPSULE PO SCH ×2 (08:43→20:36)
[2021-11-24] MEDS: ASPIRIN EC 81 MG TABLET PO SCH (08:43)
[2021-11-24] MEDS: hydrALAZINE 25 MG TABLET PO SCH ×2 (08:43→20:36)
[2021-11-24] MEDS: PANTOPRAZOLE 40 MG TABLET PO SCH (08:43)
[2021-11-24] MEDS: MAGNESIUM OXIDE 400 MG TABLET PO SCH (08:43)
[2021-11-24] MEDS: INSULIN REGULAR 100 UNIT/ML SUBCUT SCH ×4 (08:44→20:37)
[2021-11-24] MEDS: POLYETHYLENE GLYCOL POWDER 17 GM PACK PO SCH (08:44)
[2021-11-24] MEDS: SODIUM HYPOCHLORITE 0.25% IRRIG 473 ML BOTTLE TOP SCH (08:44)
[2021-11-24] MEDS: DOCUSATE SODIUM 100 MG CAPSULE PO SCH ×2 (08:44→20:36)
[2021-11-24] MEDS: ENOXAPARIN 40 MG/0.4 ML SYRINGE SUBCUT SCH (15:55)
[2021-11-24] MEDS: SIMVASTATIN 10 MG TABLET PO SCH (20:36)
[2021-11-24] MEDS: INSULIN GLARGINE 100 UNIT/ML SUBCUT SCH (20:37)
[2021-11-25] MEDS: cephALEXin 500 MG CAPSULE PO SCH ×3 (05:13→22:03)
[2021-11-25] MEDS: metroNIDAZOLE INJ 500 MG/100 ML PREMIX IV SCH ×3 (05:41→22:03)
[2021-11-25 06:08] LABS: Basophils # 0.1 10*3/uL (0.0-0.2); Eosinophils # 0.3 10*3/uL (0.0-0.87); Eosinophils % 2.5 % (0.00-10.9); Hematocrit 28.5 VOL% (42.0-52.0); Immature Granulocytes % 0.5 %; Immature Granulocytes Absolute 0.05 #; Lymphocytes # 1.7 10*3/uL (1.4-4.0); Lymphocytes % 15.2 % (21.2-54.2); Mean Corpuscular HGB Conc 31.6 GM/DL (32-36); Mean Corpuscular Volume 93.4 FL (87-102); Mean Platelet Volume 8.9 FL (9.6-12.0); Monocytes # 1.6 10*3/uL (0.11-0.8); Monocytes % 14.3 % (1.7-12.7); Neutrophils % 66.5 % (38.7-73.9); Platelet Count 454 T/CUMM (130-400); Red Blood Count 3.05 MC/CUMM (3.8-5.5); Red Cell Distribution Width 13.8 % (9.3-17.3)
[2021-11-25 06:32] LABS: Calcium 8.9 MG/DL (8.5-10.1); Potassium 4.5 MMOL/L (3.5-5.1)
[2021-11-25] MEDS: INSULIN REGULAR 100 UNIT/ML SUBCUT SCH ×4 (08:20→20:15)
[2021-11-25] MEDS: ASPIRIN EC 81 MG TABLET PO SCH (08:56)
[2021-11-25] MEDS: hydrALAZINE 25 MG TABLET PO SCH ×2 (08:56→20:15)
[2021-11-25] MEDS: MELOXICAM 7.5 MG TABLET PO SCH (08:56)
[2021-11-25] MEDS: POLYETHYLENE GLYCOL POWDER 17 GM PACK PO SCH (08:56)
[2021-11-25] MEDS: PREGABALIN 50 MG CAPSULE PO SCH ×2 (08:57→20:15)
[2021-11-25] MEDS: FOLIC ACID 1 MG TABLET PO SCH (08:57)
[2021-11-25] MEDS: PANTOPRAZOLE 40 MG TABLET PO SCH (08:57)
[2021-11-25] MEDS: SODIUM HYPOCHLORITE 0.25% IRRIG 473 ML BOTTLE TOP SCH (08:57)
[2021-11-25] MEDS: MAGNESIUM OXIDE 400 MG TABLET PO SCH (08:57)
[2021-11-25] MEDS: LOSARTAN 50 MG TABLET PO SCH (08:57)
[2021-11-25] MEDS: DOCUSATE SODIUM 100 MG CAPSULE PO SCH ×2 (08:57→20:15)
[2021-11-25] MEDS: SIMVASTATIN 10 MG TABLET PO SCH (20:15)
[2021-11-25] MEDS: INSULIN GLARGINE 100 UNIT/ML SUBCUT SCH (20:16)
[2021-11-26 05:15] LABS: Basophils # 0.1 10*3/uL (0.0-0.2); Basophils % 0.9 % (0.0-0.8); Eosinophils # 0.4 10*3/uL (0.0-0.87); Eosinophils % 3.4 % (0.00-10.9); Hematocrit 28.4 VOL% (42.0-52.0); Hemoglobin 8.8 GM/DL (14.0-18.0); Immature Granulocytes % 0.5 %; Immature Granulocytes Absolute 0.06 #; Lymphocytes # 1.6 10*3/uL (1.4-4.0); Mean Corpuscular Volume 93.1 FL (87-102); Mean Platelet Volume 9.5 FL (9.6-12.0); Monocytes # 1.6 10*3/uL (0.11-0.8); Monocytes % 13.6 % (1.7-12.7); Neutrophils % 67.6 % (38.7-73.9); Platelet Count 473 T/CUMM (130-400); Red Blood Count 3.05 MC/CUMM (3.8-5.5); Red Cell Distribution Width 13.6 % (9.3-17.3); White Blood Count 11.4 T/CUMM (4-12)
[2021-11-26 05:40] LABS: Calcium 9.1 MG/DL (8.5-10.1); Potassium 4.4 MMOL/L (3.5-5.1)
[2021-11-26] MEDS: cephALEXin 500 MG CAPSULE PO SCH ×3 (05:44→22:20)
[2021-11-26] MEDS: metroNIDAZOLE INJ 500 MG/100 ML PREMIX IV SCH ×3 (05:44→22:19)
[2021-11-26] MEDS: INSULIN REGULAR 100 UNIT/ML SUBCUT SCH ×4 (07:21→22:22)
[2021-11-26] MEDS ORDERED: fentaNYL 100 MCG/2 ML VIAL ONE (10:25)
[2021-11-26] MEDS ORDERED: propofoL 200 MG/20 ML VIAL IV ONE (10:25)
[2021-11-26] MEDS ORDERED: LIDOCAINE 2% 5 ML VIAL ONE (10:25)
[2021-11-26] MEDS ORDERED: KETAMINE 500 MG/10 ML VIAL ONE (10:26)
[2021-11-26] MEDS ORDERED: DEXMEDETOMIDINE 200 MCG/2 ML VIAL ONE (10:40)
[2021-11-26] MEDS ORDERED: MIDAZOLAM 2 MG/2 ML VIAL ONE (10:46)
[2021-11-26] MEDS ORDERED: LIDOCAINE 1% 50 ML VIAL ONE (10:50)
[2021-11-26] MEDS ORDERED: LACTATED RINGERS 1,000 ML IV SCH (11:00)
[2021-11-26] MEDS: DOCUSATE SODIUM 100 MG CAPSULE PO SCH ×2 (12:46→22:18)
[2021-11-26] MEDS: POLYETHYLENE GLYCOL POWDER 17 GM PACK PO SCH (12:46)
[2021-11-26] MEDS: FOLIC ACID 1 MG TABLET PO SCH (12:47)
[2021-11-26] MEDS: MELOXICAM 7.5 MG TABLET PO SCH (12:47)
[2021-11-26] MEDS: MAGNESIUM OXIDE 400 MG TABLET PO SCH (12:47)
[2021-11-26] MEDS: PREGABALIN 50 MG CAPSULE PO SCH ×2 (12:47→22:19)
[2021-11-26] MEDS: hydrALAZINE 25 MG TABLET PO SCH ×2 (12:48→22:19)
[2021-11-26] MEDS: SODIUM HYPOCHLORITE 0.25% IRRIG 473 ML BOTTLE TOP SCH (12:48)
[2021-11-26] MEDS: PANTOPRAZOLE 40 MG TABLET PO SCH (12:48)
[2021-11-26] MEDS: ASPIRIN EC 81 MG TABLET PO SCH (12:48)
[2021-11-26] MEDS: LOSARTAN 50 MG TABLET PO SCH (12:48)
[2021-11-26] MEDS: INSULIN GLARGINE 100 UNIT/ML SUBCUT SCH (22:19)
[2021-11-26] MEDS: SIMVASTATIN 10 MG TABLET PO SCH (22:19)
[2021-11-27] MEDS: metroNIDAZOLE INJ 500 MG/100 ML PREMIX IV SCH (05:50)
[2021-11-27] MEDS: cephALEXin 500 MG CAPSULE PO SCH (05:50)
[2021-11-27 06:08] LABS: Basophils # 0.1 10*3/uL (0.0-0.2); Basophils % 0.8 % (0.0-0.8); Eosinophils # 0.5 10*3/uL (0.0-0.87); Eosinophils % 4.9 % (0.00-10.9); Hematocrit 28.3 VOL% (42.0-52.0); Hemoglobin 8.7 GM/DL (14.0-18.0); Immature Granulocytes % 0.6 %; Immature Granulocytes Absolute 0.06 #; Lymphocytes # 1.6 10*3/uL (1.4-4.0); Lymphocytes % 16.4 % (21.2-54.2); Mean Corpuscular HGB Conc 30.7 GM/DL (32-36); Mean Platelet Volume 9.5 FL (9.6-12.0); Monocytes # 1.4 10*3/uL (0.11-0.8); Monocytes % 14.5 % (1.7-12.7); Neutrophils % 62.8 % (38.7-73.9); Platelet Count 431 T/CUMM (130-400); Red Blood Count 3.01 MC/CUMM (3.8-5.5); Red Cell Distribution Width 13.9 % (9.3-17.3); White Blood Count 9.5 T/CUMM (4-12)
[2021-11-27 06:23] LABS: Osmolality,Calculated 273.7 MOS/KG (273-304); Potassium 4.3 MMOL/L (3.5-5.1)
[2021-11-27] MEDS: PANTOPRAZOLE 40 MG TABLET PO SCH (08:26)
[2021-11-27] MEDS: INSULIN REGULAR 100 UNIT/ML SUBCUT SCH ×2 (08:26→10:51)
[2021-11-27] MEDS: ASPIRIN EC 81 MG TABLET PO SCH (08:26)
[2021-11-27] MEDS: FOLIC ACID 1 MG TABLET PO SCH (08:26)
[2021-11-27] MEDS: DOCUSATE SODIUM 100 MG CAPSULE PO SCH (08:26)
[2021-11-27] MEDS: PREGABALIN 50 MG CAPSULE PO SCH (08:26)
[2021-11-27] MEDS: hydrALAZINE 25 MG TABLET PO SCH (08:26)
[2021-11-27] MEDS: MAGNESIUM OXIDE 400 MG TABLET PO SCH (08:26)
[2021-11-27] MEDS: LOSARTAN 50 MG TABLET PO SCH (08:26)
[2021-11-27] MEDS: MELOXICAM 7.5 MG TABLET PO SCH (08:26)
[2021-11-27] MEDS: POLYETHYLENE GLYCOL POWDER 17 GM PACK PO SCH (08:27)
[2021-11-27] MEDS: SODIUM HYPOCHLORITE 0.25% IRRIG 473 ML BOTTLE TOP SCH (10:30)
[2021-11-27 11:45] VITALS: BP 144/58
== END 2021-11-27 13:38 | disposition swing bed (61) | DRG 239 ==
LOC: EDBD → EDUNIT# → N.ED 11:05 → SUATTDRO 14:20 → N.3E 14:20
PROVIDERS: ADMIT Internal Medicine; ATTEND Family Medicine